=== PATIENT | female | born 2000 | race Caucasian/White ===

== ENCOUNTER 2024-08-09 14:09 | Inpatient (IN) ==
[2024-08-09 15:08] LABS: Appearance Urine Cloudy (Clear); Bacteria Urine Automated None Seen (None Seen); Bilirubin Urine Negative (Negative); Blood Urine 3+ (Negative); Cast Urine Automated 0-2 /lpf (0-2); Color Urine Yellow; Epithelial Cell Urine Auto 0-2 /hpf (0-2); Glucose Urine UA Negative (Negative); Ketones Urine Trace (Negative); Leukocyte Esterase Urine Negative (Negative); Nitrite Urine Negative (Negative); Protein Urine Trace (Negative); RBC Urine Automated >20 /hpf (0-2); Specific Gravity Urine 1.028 (1.000-1.030); Urobilinogen Urine Negative (Negative); WBC Urine Automated 0-5 /hpf (0-5); pH Urine 5.5 (4.5-7.5)
[2024-08-09 15:29] LABS: Basophils # (auto) 0.03 K/uL (0.00-0.20); Basophils % (auto) 0.4 %; Eosinophils # (auto) 0.09 K/uL (0.00-0.50); Eosinophils % (auto) 1.3 %; Hematocrit (blood only) 37.9 % (37.0-47.0); Hemoglobin 12.2 g/dl (12.0-16.0); Immature Granulocytes # (auto) 0.01 K/uL (0.01-0.20); Immature Granulocytes % (auto) 0.1 %; Lymphocytes # (auto) 1.69 K/uL (1.20-3.40); Lymphocytes % (auto) 24.6 %; Mean Corpuscular Hemoglobin 26.9 pg (25.0-34.0); Mean Corpuscular Hgb Conc 32.2 g/dL (32.0-36.0); Mean Corpuscular Volume 83.5 fL (80.0-100.0); Mean Platelet Volume 9.8 fL (9.4-12.4); Monocytes # (auto) 0.59 K/uL (0.11-0.59); Monocytes % (auto) 8.6 %; Neutrophils # (auto) 4.47 K/uL (1.40-6.50); Platelet Count 301 K/uL (130-400); RDW Coefficient of Variation 12.8 % (11.5-14.5); RDW Standard Deviation 38.9 fL (36.4-46.3); Red Blood Count 4.54 M/uL (4.20-5.40); White Blood Count 6.88 K/ul (4.8-10.8)
[2024-08-09 15:34] LABS: Albumin Globulin Ratio 1.5 (0.9-2); Albumin Level 4.4 gm/dl (3.4-5.0); BUN Creatinine Ratio 11.5 (10-20); Bilirubin,Total 0.2 mg/dl (0.2-1.0); Calcium 9.3 mg/dl (8.6-10.3); Creatinine Clr Calc Pharmacy 141.9 ml/min; Globulin 2.9 gm/dl (2.5-4.0); Potassium 3.8 mmol/L (3.5-5.1); Total Protein 7.3 gm/dl (6.0-8.3)
[2024-08-09 15:37] LABS: Acetaminophen < 3 ug/ml (10-30); Salicylate < 3.0 mg/dl (3.0-30)
[2024-08-09 15:40] LABS: Amphetamines+Metham, Urine Neg (Neg); Barbiturates, Urine Neg (Neg); Benzodiazepine, Urine Neg (Neg); Cocaine, Urine Neg (Neg); Fentanyl, Urine Neg (Neg); MDMA (Ecstacy), Urine Neg (Neg); Marijuana, Urine Neg (Neg); Methadone, Urine Neg (Neg); Opiate, Urine Neg (Neg); Phencyclidine, Urine Neg (Neg)
[2024-08-09 15:48] LABS: Thyroid Stimulating Hormone 1.882 uIu/ml (0.300-4.500)
--- NOTE | 2024-08-09 16:18 | Emergency Department Note ---
Impression & Plan Psychosis, Hallucinations ED Provider Note NAME: YAEL CASTELAN AGE: 23 SEX: F : 2000 ARRIVES VIA: Walk-In INFORMANT: [Patient][mother] ED PROVIDER(S): [Driss Gaxiola MD] CHIEF COMPLAINT: Mental health evaluation HISTORY OF PRESENT ILLNESS: The patient is a 23-year-old female who presents to the ER with hallucinations. She has been hearing voices. At one point, she felt there was a car following her. She would see the car but no one else would. The patient has had this issue ongoing for some time but it is worsening. It is now beginning to interfere with her schoolwork and her ability to function on an outpatient basis. Patient went to her doctor's office today, she was referred to the ER for a psychiatric evaluation and hospitalization. The patient is voluntary. The patient is not currently suicidal or homicidal. The patient is on her menstrual cycle currently, she states that when she is on her cycle, her symptoms worsen. As per the mother, the patient's father had bipolar disease and he did also hear voices. The patient is not currently on any psychiatric medications. PMHx/PSHx/Social Hx: See Below PHYSICAL EXAM: GENERAL: Patient is in no acute distress. HEENT: No acute trauma, normocephalic atraumatic, mucous membranes moist, no nasal congestion. NECK: No stridor, no adenopathy, no meningismus, trachea is midline. LUNGS: Clear to auscultation bilaterally, no wheeze, no rhonchi, breath sounds equal. HEART: Without murmurs gallops or rubs, regular rate and rhythm. ABDOMEN: Soft, nontender, no peritonitis. EXTREMITIES: No cyanosis, full range of motion of all the joints without pain or difficulty. NEUROLOGIC: Oriented x 3, no acute motor or sensory deficits, no focal weakness. SKIN: No jaundice, no diaphoresis. Psychiatric: Cooperative, voluntary, not suicidal or homicidal. Admits to hearing voices. DIFFERENTIAL DIAGNOSIS: Psychosis, schizophrenia, intracranial mass or bleed, electrolyte disturbance, among others. EMERGENCY DEPARTMENT PROCEDURES: MEDICAL DECISION MAKING: There is no leukocytosis or concerning anemia. There is a normal platelet count. No renal failure or significant electrolyte abnormality. No concerning liver enzyme elevation. Patient appears to be in a euthyroid state. testing is negative. Urinalysis shows some blood however, the patient is on her menstrual cycle. No evidence for UTI. Aspirin and Tylenol levels were undetectable. Alcohol level was basically undetectable. COVID test was negative. Urine tox was negative. Brain CT showed no acute bleed or mass effect. On exam, the patient was cooperative. She admitted to hearing voices. The patient was felt medically clear. She was seen by psychiatry case management. The patient was seen by our hospital psychiatric services, she has been accepted to their floor. She is being admitted voluntarily. I did sign the appropriate paperwork for her voluntary psychiatric admission. She has done well in the ED, she has been quite cooperative. Prior/Outside records/notes reviewed: None Imaging/x-ray results per my interpretation: Chronic Medical/Social conditions affecting care: College student. Care/Management discussed with: Psychiatry case management. Level of care consideration(s): After review of the information above and other included data: --I believe the patient requires escalation of care to admission for inpatient psychiatric care DISPOSITION: Admitted to our hospital's psychiatric floor, 3 S. Past Med/Surg History Problem List (Updated 08/09/24 @ 21:56 by Driss Gaxiola MD) Hallucinations (Acute) Psychosis (Acute) Medical History Seizure Social History Smoking Status: Never smoker Preferred Language: Korean Communication Ability: Effective Poultry Husbandman Required: No Beliefs That Will Affect Care: None Feels Safe at Home: Yes Gender Identity: Female Assistive Devices: None Allergies Allergies Allergy/AdvReac Type Severity Reaction Status Date / Time No Known Allergies Allergy Unverified 08/09/24 19:39 Results & Data (ED) Vital Signs Vital Signs - 24 hr 08/09/24 14:16 08/09/24 17:16 08/09/24 19:08 Temperature 36.5 C Temperature Source Oral Pulse Rate 74 74 Pulse Rate [Apical] 50 L Respiratory Rate 20 20 18 Respiratory Effort / Characteristics Non-Labored Spontaneous Respiratory Depth Normal Blood Pressure 148/93 H 135/74 Blood Pressure [Right Arm] 116/74 Blood Pressure Mean 111 Blood Pressure Mean [Right Arm] 88 Pulse Oximetry 99 97 98 Oxygen Delivery Method Room Air Room Air Room Air Sepsis Recent Fever Within 48 Hours No Sepsis New/Unexplained Change in Mental Status No Sepsis Action Taken by Nursing No Action Required Home Medications Current Medication List: was personally reviewed by me Laboratory Data Attestation: I reviewed the patient's lab results. 08/09/24 14:48 08/09/24 14:48 Lab Results 08/09/24 08/09/24 Range/Units 14:25 14:48 WBC 6.88 (4.8-10.8) K/ul RBC 4.54 (4.20-5.40) M/uL Hgb 12.2 (12.0-16.0) g/dl Hct 37.9 (37.0-47.0) % MCV 83.5 (80.0-100.0) fL MCH 26.9 (25.0-34.0) pg MCHC 32.2 (32.0-36.0) g/dL RDW Std Deviation 38.9 (36.4-46.3) fL RDW Coeff of Tara 12.8 (11.5-14.5) % Plt Count 301 (130-400) K/uL MPV 9.8 (9.4-12.4) fL Immature Gran % (Auto) 0.1 % Neut % (Auto) 65.0 % Lymph % (Auto) 24.6 % [place] % (Auto) 8.6 % Eos % (Auto) 1.3 % Baso % (Auto) 0.4 % Neut # (Auto) 4.47 (1.40-6.50) K/uL Lymph # (Auto) 1.69 (1.20-3.40) K/uL [place] # (Auto) 0.59 (0.11-0.59) K/uL Eos # (Auto) 0.09 (0.00-0.50) K/uL Baso # (Auto) 0.03 (0.00-0.20) K/uL Immature Gran # (Auto) 0.01 (0.01-0.20) K/uL Sodium 141 (136-145) mmol/L Potassium 3.8 (3.5-5.1) mmol/L Chloride 108 H (98-107) mmol/L Carbon Dioxide 28 (21-32) mmol/L Anion Gap 5 (3-11) BUN 7 (6-23) mg/dl Creatinine 0.61 (0.6-1.2) mg/dl Est Cr Clr Drug Dosing 141.9 ml/min eGFR 130.36 BUN/Creatinine Ratio 11.5 (10-20) Glucose 95 (70-99(Fasting)) mg/dl Calcium 9.3 (8.6-10.3) mg/dl Total Bilirubin 0.2 (0.2-1.0) mg/dl AST 12 L (13-39) U/L ALT 9 (7-52) U/L Alkaline Phosphatase 48 (34-104) U/L Total Protein 7.3 (6.0-8.3) gm/dl Albumin 4.4 (3.4-5.0) gm/dl Globulin 2.9 (2.5-4.0) gm/dl Albumin/Globulin Ratio 1.5 (0.9-2) TSH 1.882 (0.300-4.500) uIu/ml HCG, Qual Negative (Negative) Urine Color Yellow Urine Appearance Cloudy A (Clear) Urine pH 5.5 (4.5-7.5) Ur Specific [place] 1.028 (1.000-1.030) Urine Protein Trace H (Negative) Urine Glucose (UA) Negative (Negative) Urine Ketones Trace H (Negative) Urine Blood 3+ H (Negative) Urine Nitrite Negative (Negative) Urine Bilirubin Negative (Negative) Urine Urobilinogen Negative (Negative) Ur Leukocyte Esterase Negative (Negative) Urine WBC (Auto) 0-5 (0-5) /hpf Urine RBC (Auto) >20 H (0-2) /hpf U Hyaline Cast (Auto) 0-2 (0-2) /lpf U Epithel Cells (Auto) 0-2 (0-2) /hpf Urine Bacteria (Auto) None Seen (None Seen) Salicylates < 3.0 L (3.0-30) mg/dl Urine Opiates Screen Neg (Neg) Ur Methadone, Qual Neg (Neg) Urine Fentanyl Screen Neg (Neg) Acetaminophen < 3 L (10-30) ug/ml Urine Barbiturates Neg (Neg) Ur Phencyclidine (PCP) Neg (Neg) U Amphetamin/Meth Scrn Neg (Neg) MDMA (Ecstasy) Screen Neg (Neg) U Benzodiazepines Scrn Neg (Neg) Ur Cocaine Metabolite Neg (Neg) U Marijuana (THC) Screen Neg (Neg) Ethyl Alcohol mg/dL 10.7 H (<10.0) mg/dl SARS-CoV-2, RNA, NAAT NEGATIVE (NEGATIVE) Imaging Data Radiologist's Impression: Head CT 08/09/24 15:51 CT head/brain wo con CLINICAL HISTORY: 23 years-old Female with hears voices. Acutely altered mental status TECHNIQUE: Multiple axial CT images of the head were obtained without contrast. A dose lowering technique was utilized adhering to the principles of ALARA. CT DOSE: 703.85 mGy.cm COMPARISON: None. FINDINGS: No acute intracranial hemorrhage, midline shift, intracranial mass, hydrocephalus, territorial ischemia or abnormal extra-axial collection. The calvarium is intact. The paranasal sinuses, mastoid air cells, and middle ear cavities are clear. IMPRESSION: Normal exam. ACT 112: Negative or not required by law. The above report was generated using voice recognition software. It may contain grammatical, syntax or spelling errors. Electronically signed by: Abner Gomez M.D. 08/09/2024 4:21 PM Discharge Plan Visit Data Chief Complaint: Mental Health Evaluation Stated Complaint: HALLUCINATING, SCIZOPHRENIC, REF BY DOC ED Provider: Driss Gaxiola Discharge Problem: Psychosis, Hallucinations Patient Disposition: Admitted As Inpatient Condition: Good Discharge Instructions Interventions: ED Discharge Assessment Last Done: 08/09/24 19:08 Discharge Problem: Psychosis Qualifiers: Psychosis type: unspecified psychosis type Qualified Code(s): F29 - Unspecified psychosis not due to a substance or known physiological condition
--- NOTE | 2024-08-09 16:22 | CT Scan Report ---
CT head/brain wo con CLINICAL HISTORY: 23 years-old Female with hears voices. Acutely altered mental status TECHNIQUE: Multiple axial CT images of the head were obtained without contrast. A dose lowering tech nique was utilized adhering to the principles of ALARA. CT DOSE: 703.85 mGy.cm COMPARISON: None. FINDINGS: No acute intracranial hemorrhage, midline shift, intracranial mass, hydrocephalus, territorial ischem ia or abnormal extra-axial collection. The calvarium is intact. The paranasal sinuses, mastoid air cells, and middle ear cavities are clear . IMPRESSION: Normal exam. ACT 112: Negative or not required by law. The above report was generated using voice recognition software. It may contain grammatical, syntax o r spelling errors. Electronically signed by: Abner Gomez M.D. 08/09/2024 4:21 PM
[2024-08-09 16:57] LABS: Pregnancy Test, Serum Negative (Negative)
[2024-08-09] MEDS ORDERED: MAGNESIUM HYDROXIDE SUSP 30 ML UDC PO PRN (19:05)
[2024-08-09] MEDS ORDERED: ACETAMINOPHEN 325 MG TAB PO PRN (19:05)
[2024-08-09] MEDS ORDERED: SODIUM CHLORIDE 0.65% NA SOLN 45 ML (OCEAN) PRN (19:05)
[2024-08-09] MEDS ORDERED: BISMUTH SUBSALICYLATE 262 MG CHEW PO PRN (19:05)
[2024-08-09] MEDS ORDERED: hydrOXYzine HCl 25 MG TAB PO PRN ×2 (19:05)
[2024-08-09] MEDS ORDERED: ALUMINUM/MAGNESIUM SUSP 30 ML UDC PO PRN (19:05)
[2024-08-09] MEDS ORDERED: risperiDONE 0.25 MG TAB PO PRN (21:27)
--- NOTE | 2024-08-10 08:48 | History & Physical ---
Date of Service August 10, 2024 Impression / Recommendations Impression YAEL CASTELAN is a 23-year-old woman and [employer] senior who currently lives with her mother and brothers in [place], has no formal psychiatric history, and was admitted on 08/09/24 19:33 on a 201 voluntary commitment for paranoia and psychosis interfering with her ability to function. She has no outpatient services and is becoming increasingly distressed due to intensifying auditory hallucinations, complex delusions and paranoia impacting her sleep and ability to function at school. Diagnostically consistent with unspecified psychosis with differential including delusion disorder vs schizophrenia vs bipolar affective disorder current episode of zeeshan (rapid speech but no other symptoms of zeeshan observed so far) vs secondary to seizure episodes (unclear if past episodes were psychogenic, unclear if some of her current symptoms may represent ongoing focal aware seizures at times but unlikely to cause consistent auditory hallucinations and complex delusions). Discussed medication treatment options in detail. Discussed risks, benefits and alternatives. Patient would like to start and consented to Abilify for unspecified psychosis. Reviewed side effects including but not limited to: movement (TD, NMS), cardiac (QTc prolongation), and metabolic (stroke, insulin resistance) and necessity for fasting lipid and glucose labwork and AIMS done with score of 0. MNPR due to psychosis, paranoia Overall I spent a total of 80 minutes for this admission including review of chart records, review of labwork, direct evaluation of the patient, counseling the patient, ordering medication, risk assessment, discussion with the psychiatric liason RN and documentation in the electronic health record. (1) Psychosis: Psychosis type: unspecified psychosis type Qualified Code(s): F29 - Unspecified psychosis not due to a substance or known physiological condition (2) Hallucinations: Plan 08/10/2024: The patient was [facility] on q15 min checks (behavioral with suicide precautions) for safety. The patient will participate in group, recreational, and milieu therapies and will be offered additional individual and family sessions as clinically appropriate. -Start abilify 5mg qd with additional 2.5mg po BID prn for psychosis -HbA1c and fasting lipid panel tomorrow AM -Seizure precautions Inventory Assets Strengths: supportive relationships, willing to get treatment Needs: safety and stabilization, medication adjustment, additional coping skills, increased outpatient services Suicide Risk Level Suicide Risk Level: Moderate (q15 min suicide checks) (denies SI but having auditory hallucinations which are distressing and can be command in nature at times (though never to harm herself), feels safe on the unit, feels able to ask for support) Risk Factors Assessment Male: No : No Do You Have Access To A Gun?: No Mental Health Diagnoses: Yes Substance Use Disorders: No Previous Attempt: No Family History of Suicide: No Previous Psychiatric Hospitalization: No Hopelessness: No Protective Factors Assessment Employed: No Stable Relationships: Yes Supportive Family: Yes Psychiatric History Identifying Data YAEL CASTELAN is a 23-year-old woman and [employer] senior who currently lives with her mother and brothers in [place], has no formal psychiatric history, and was admitted on 08/09/24 19:33 on a 201 voluntary commitment for paranoia and psychosis interfering with her ability to function. Chief Complaint "I don't know how much I want to reveal". Thinks she is telepathic, sees things in her dreams and then sees them when awake, hears voices that tell her to wear certain clothes, hears a chess player. One of the voices tells her they are going to sexually abuse her mother. Paranoia about her phone being hacked, will cover the camera bc she thinks she is being watched. Reports pattern of symptoms worsening during her menses. Hyperverbal initially, slept well overnight, typically has hypersomnia. History of Present Illness She presents for psychiatric admission for worsening psychosis interfering with her ability to function as she has been hearing negative voices which are impacting her sleep and ability to function in her classes. She describes a 4 year history of disturbing symptoms that worsen around her menses. She reports a strong correlation between her symptoms and technology, with the onset of her symptoms beginning with a perceived connection to a male individual on campus. She describes feeling paranoid due to the individual's avoidance of direct communication and subsequent interactions on a [employer] website. She has been experiencing auditory hallucinations, hearing the individual's voice in her head, which has led to sleep disturbances and obsessive behavior with chess as a coping mechanism. She has experienced physical sensations throughout her body and has a history of belching related to this sense of "wisps and pressure" but also reports this is associated with seizures. She reports sensations throughout her body, including what she calls "wisps" on her body, face, inside her nose, and behind her ears. She also describes feeling pressures on her heart and in her pelvic area. She reports stable sleep in recent weeks of at least 8 hours per night. Expanding on her symptoms she describes a variety of experiencing including: "Essentially it's evolved to a connection with technology". She has the sense of "wisps" on her body, behind my ears, my neck, my nose. She notes she also feels "pressures that are not my own, my heart would act because of some pressure". She describes "ictal belching" related to this pressure and "I think connected to my mosque". She describes increasing paranoia especially toward an individual who she's never spoken to but whom she senses he has wanted to establish some type of connection. She notes that whenever she tried to approach him "he had a bizarre aura". She notes that "he knew I liked him" but "he would never talk, he just wanted to be in my presence". She tried to come to the conclusion that he didn't like her but "he was always staring at me and I'd always see him around campus". She feels this started her paranoia and that it's persisted since then. She enjoys playing [employer] but after an experience on [employer] where she played against someone with a username that matched the man who she sees around campus. She messaged him through the [employer] site to confirm it was him and asked this person to confirm the name of her best friend but this individual then said they didn't understand [place] and so she blocked this person online. She notes that a lot of her paranoia correlates to her dreams. One morning she saw "a telegram in the jerzy" of this man talking to her in the dream. She then realized that he could see her through her computer screen. She noticed her [employer] website would "glitch or shut down" and she suspects this may have been him hacking her computer. She then began hearing his voice in her head and "my computer slowed down like it was correlated" or the [employer] pieces would slow down. Her sleep has been difficult "because he tells me why he acts the way he does and it's very negative including all the reasons he can't talk to me like you're poor and the n-word" she notes it would also tell her to stop playing chess. The voice has been very negative and "they aren't my thoughts". She ended up playing a lot of chess to relax but then "I would feel like he was stalking me because he would try to stop me from playing because the game would freeze". The voice would say "I can see you" and "I can hear you" so she felt she needed to cover her camera. She now has the sense he knew about her before college and "knew me despite us not having met" and thinks this is why she was dreaming about him before they even met. She's never pointed him out when she's with other individuals. She has the sense "he knows what I'm thinking and feeling and can hear through the regalado". The voice "threatens me" will say negative things to her swear at her. "Part of it is the telepathy". She notes the voice is often "crying". She thinks he is upset today that she is away from her electronics in the inpatient setting so he can't monitor her. She feels like last week she saw him on campus driving around in his black Honda. She also reports a history of epilepsy, with her last seizure occurring during college. She experiences headaches, belching, and occasional trembling fits. She has previously been on Trileptal and Lamictal for seizure management but weaned herself off the medications in 10th grade due to their impact on her school performance. She denies any thoughts of suicide or wanting to hurt others but acknowledges that the auditory hallucinations sometimes instruct her to do things but she never does this. She describes periods of "zeeshan" during which the hallucinations become more negative and persistent, affecting her sleep but denies any other symptoms of zeeshan during this time. She is currently studying Romanian and is on track to graduate in the spring. She is not currently prescribed any psychiatric medications. Past Psychiatric History Previous Psych History: Apparently having concerns for the last four years of concerns about a young man stalking her. Current Psychiatric Diagnosis: No formal diagnosis Outpatient Services: none Previous Psych Admissions: none Do You Have Access To A Gun?: No History of Previous Suicide Attempt: No Past Medication Trials: none, was on lamictal for seizures but didn't like that it impacted her cognition/academic performance Past Head Trauma/Neuro History History of Concussion/Seizure: Yes Grew up with epilepsy, last seizure was in 5th grade. More recently will have "ictal belching" and may have "trembling fits". History of being on Trileptal and lamictal. Allergies Allergy/AdvReac Type Severity Reaction Status Date / Time Penicillins Allergy Unknown Verified 08/10/24 12:54 Family History Family History of: Depression (maternal grandfather ), Psychosis/ThoughtDisorder (father diagnosed with bipolar "but he reported hearing voices") and Bipolar (sister) Family Mental Health History Comment: Father, aunts Alcohol History Hx of Alcohol Use Over the Past 12 Months: No AUDIT Total Score: 0 Smoking Use Have You Smoked or Used Tobacco Products in the Last 30 Days: No Smoking Status: Never smoker Substance History Hx of Prescription Med Misuse Over the Past 12 Months: No Hx of Over the Counter Med Misuse Over the Past 12 Months: No Hx of Inhalent Misuse Over the Past 12 Months: No Hx of Organic Substance Use Over the Past 12 Months: No Hx of Illegal Substances/Street Drug Use Over Past 12 Months: No Problems as a Result of Past Substance Use: None Identified Personal History Living Arrangements: Home Childhood: Struggled with housing insecurity. Has a good relationship with her mother. Has two younger brothers. Since the family was homeless her mom found place near [facility] so she commutes from home currently. Highest Grade Completed: Some College Employment Status: Student ([employer] studying Romanian) Marital Status: Single Beliefs That Will Affect Care: None Current Legal Problems: No Hx Legal Problems: No Hx Traumatic Life Events: Yes Patient History Medical History Seizure Social History Smoking Status: Never smoker Preferred Language: Venezuelan Communication Ability: Effective Tire [employer]older Required: No Beliefs That Will Affect Care: None Feels Safe at Home: Yes Gender Identity: Female Assistive Devices: None Review of Systems Review of Systems: All systems reviewed & are unremarkable except as noted in HPI & below Physical Exam Psychiatric: Orientation: alert and oriented x 3 Apperance: appropriately dressed and appropriately groomed Eye Contact: good eye contact Motor Behavior: no abnormal motor movements Speech: + abnormal rate/rhythm/volume of speech (hyperverbal, rapid but interruptable) Affect: + anxious affect Mood: + anxious mood Thought Process: + tangential thought process Thought Content: + preoccupation, + obsessions, + paranoid, + delusions, + ideas of reference, + thought insertion and + persecution Suicidal Thoughts: denies suicidal plan and denies suicidal intent; + reports suicidal thoughts (sometimes passive thoughts) Homicidal Thoughts: denies homicidal thoughts Hallucinations: + auditory hallucinations and + visual hallucinations Cognition: recent memory grossly intact, remote memory grossly intact, attention grossly intact and language grossly intact Estimated Intelligence: consistent with education level Insight: + limited insight Judgment: + fair judgement Vital Signs (Past 24 Hours): Last Vital Signs Temp 36.9 C 08/10/24 06:00 Pulse 55 L 08/10/24 06:20 Resp 18 08/10/24 06:00 BP 106/67 08/10/24 06:20 Pulse Ox 99 08/10/24 06:00 O2 Del Method Room Air 08/10/24 06:00 Exam Statement: A physical exam was performed in the ED by Dr. Gaxiola for the purposes of medical clearance. I accept that physical as correct and adequate for the purposes of the inpatient physical exam. Results & Data ([facility]) Laboratory Results Laboratory Results - last 24 hr 08/09/24 08/09/24 14:25 14:48 WBC 6.88 RBC 4.54 Hgb 12.2 Hct 37.9 MCV 83.5 MCH 26.9 MCHC 32.2 RDW Std Deviation 38.9 RDW Coeff of Tara 12.8 Plt Count 301 MPV 9.8 Immature Gran % (Auto) 0.1 Neut % (Auto) 65.0 Lymph % (Auto) 24.6 [place] % (Auto) 8.6 Eos % (Auto) 1.3 Baso % (Auto) 0.4 Neut # (Auto) 4.47 Lymph # (Auto) 1.69 [place] # (Auto) 0.59 Eos # (Auto) 0.09 Baso # (Auto) 0.03 Immature Gran # (Auto) 0.01 Sodium 141 Potassium 3.8 Chloride 108 H Carbon Dioxide 28 Anion Gap 5 BUN 7 Creatinine 0.61 Est Cr Clr Drug Dosing 141.9 eGFR 130.36 BUN/Creatinine Ratio 11.5 Glucose 95 Calcium 9.3 Total Bilirubin 0.2 AST 12 L ALT 9 Alkaline Phosphatase 48 Total Protein 7.3 Albumin 4.4 Globulin 2.9 Albumin/Globulin Ratio 1.5 TSH 1.882 HCG, Qual Negative Urine Color Yellow Urine Appearance Cloudy A Urine pH 5.5 Ur Specific [place] 1.028 Urine Protein Trace H Urine Glucose (UA) Negative Urine Ketones Trace H Urine Blood 3+ H Urine Nitrite Negative Urine Bilirubin Negative Urine Urobilinogen Negative Ur Leukocyte Esterase Negative Urine WBC (Auto) 0-5 Urine RBC (Auto) >20 H U Hyaline Cast (Auto) 0-2 U Epithel Cells (Auto) 0-2 Urine Bacteria (Auto) None Seen Salicylates < 3.0 L Urine Opiates Screen Neg Ur Methadone, Qual Neg Urine Fentanyl Screen Neg Acetaminophen < 3 L Urine Barbiturates Neg Ur Phencyclidine (PCP) Neg U Amphetamin/Meth Scrn Neg MDMA (Ecstasy) Screen Neg U Benzodiazepines Scrn Neg Ur Cocaine Metabolite Neg U Marijuana (THC) Screen Neg Ethyl Alcohol mg/dL 10.7 H SARS-CoV-2, RNA, NAAT NEGATIVE Current Inpatient Medications Current Inpatient Medications: Current Inpatient Medications Acetaminophen (Acetaminophen 325 Mg Tab) 650 mg PO Q4H PRN PRN Reason: Headache or Minor Fever Stop: 09/08/24 19:04 Al Hydrox/Mg Hydrox/Simethicone (Aluminum/Magnesium Susp 30 Ml Udc) 30 ml PO Q4H PRN PRN Reason: GI Upset Stop: 09/08/24 19:04 Bismuth Subsalicylate (Bismuth Subsalicylate 262 Mg Chew) 2 tab PO Q30M PRN PRN Reason: Loose Stool/Diarrhea Stop: 09/08/24 19:04 Hydroxyzine HCl (Hydroxyzine Hcl 25 Mg Tab) 50 mg PO HSZ PRN PRN Reason: Insomnia Stop: 09/08/24 19:04 Hydroxyzine HCl (Hydroxyzine Hcl 25 Mg Tab) 25 mg PO Q4H PRN PRN Reason: Anxiety Stop: 09/08/24 19:04 Magnesium Hydroxide (Magnesium Hydroxide Susp 30 Ml Udc) 30 ml PO DAILY PRN PRN Reason: Constipation Stop: 09/08/24 19:04 Risperidone (Risperidone 0.25 Mg Tab) 0.5 mg PO BID PRN PRN Reason: psychosis/agitation Stop: 09/08/24 21:26 Sodium Chloride (Sodium Chloride 0.65% Na Soln 45 Ml ([place])) 1 - 2 sprays NA PRN PRN PRN Reason: Nasal Dryness/Congestion Stop: 09/08/24 19:04
--- OUTSIDE RECORDS SUMMARY | 2024-08-10 09:12 | External Medical Summary | Summary of Care ---
Author Name Unknown Organization [facility] Address [address] [place] [address] Phone [phone] Care Team Providers Care Hospitalist Program Director Name Role Phone Sarahi Casas MD Primary Care Provider + Reason for Referral * Evaluate & Treat - Unlimited Visits (Within 3 days (urgent)) - Pending Review Specialty Diagnoses / Procedures Referred By Alice ross Referred To Contact Psychology Diagnoses Sarahi Walker MD [address] [place] [address] Referral ID Status Reason Start Date Expiration Date Visits Requested Visits Authorized [id number] Pending Review Specialty Services Required 08/09/2024 1 1 Question Answer Referral Priority Within 3 days (urgent) Where should this appointment be scheduled? [facility] Reason for Referral: Other (Comment) Specific Condition? Other (Comment) Comments Please eval, have symptoms off and on of hallucination, negative thoughts for last 3 yrs, getting worse now. Refusing to go to ER. Doesn't prefer telemedicine.Thanks. Thanks * Evaluate & Treat - Unlimited Visits (Within 3 days (urgent)) - Pending Review Specialty Diagnoses / Procedures Referred By Alice ross Referred To Contact Psychiatry Diagnoses Sarahi Walker MD [address] [place] [address] Referral ID Status Reason Start Date Expiration Date Visits Requested Visits Authorized [id number] Pending Review Specialty Services Required 08/09/[phone] Question Answer Referral Priority Within 3 days (urgent) Where should this appointment be scheduled? [facility] Is this referral for medication management? Yes Reason for Referral Schizophrenia Comments Please eval, have symptoms off and on of hallucination, negative thoughts for last 3 yrs, getting worse now. Thanks. Reason for Visit * Reason Comments Referral Discuss referral for possible schizophrenia; patient accompanied by mother Encounter Details Date Type Department Care Team (Late st Contact Info) Description 08/09/2024 9:40 AM EDT Office Visit General Internal Medicine [facility] [place] [address] [facility] [place] [address] Sarahi Casas MD [address] [facility] [place] [address] Hallucination*; Family history of endocrine disorder; Screening for deficiency anemia Allergies Active Allergy Reactions Criticality Noted Date Comments Penicillins Rash 03/29/2023 documented as of this encounter (statuses as of 08/09/2024) Medications No known medicationsdocumented as of this encounter (statuses as of 08/09/2024) Active Problems Problem Noted Date Diagnosed Date Hypercholesterolemia 04/12/2023 documented as of this encounter (statuses as of 08/09/2024) Immunizations Name Administration Dates Next Due Seasonal Influenza, Trivalent, (IIV3), PF, (Fluz one) 07/26/2024 documented as of this encounter Social History Tobacco Use Types Packs/Day Years Used Date Smoking Tobacco: Never Smokeless Tobacco: Never Tobacco Cessation:Counseling Given: Not Answered Alcohol Use Standard Drinks/Week Comments Never 0 (1 standard drink = 0.6 oz pur e alcohol) PHQ-2 Answer Date Recorded PHQ Adult Total Score 19 06/03/2023 Utilities Answer Date Recorded Do you have trouble paying y our heating, water, or electric bill? (Adult - for ages 18 years and over) Not on file 04/24/2024 Is your family able to pay t he heat, water, or electric bill? (Household - for ages 0-17 years) Not on file 04/24/2024 Does your family have access to good internet? (Household - for ages 0-17 years) Not on file 04/24/2024 Social Connections Answer Date Recorded How often do you feel lonely or isolated from those around you? (Adult - for ages 18 years and over) Not on file 04/24/2024 Sex and Gender Information Value Date Recorded Sex Assigned at Not on file Gender Identity Not on file Sexual Orientation Not on file Job Start Date Occupation Industry Not on file Not on file Not on file documented as of this encounter Last Filed Vital Signs Vital Sign Reading Time Taken Comments Blood Pressure 108/60 08/09/2024 9:44 AM EDT Pulse 56 08/09/2024 9:44 AM EDT Temperature 36.9 C (98.4 F) 08/09/2024 9:44 AM ED T Respiratory Rate 24 08/09/2024 9:44 AM EDT Oxygen Saturation - - Inhaled Oxygen Concentration - - Weight 69.1 kg (152 lb 6.4 oz) 08/09/2024 9:44 A M EDT Height - - Body Mass Index 23.17 07/27/2024 2:53 PM EDT documented in this encounter Progress Notes * Sarahi Casas MD - 08/09/2024 9:55 AM EDT Images from the original note were not included. History of Present Illness Lis Jean is a 23 year old female that presents for Referral (Discuss referral for possible schizophrenia; patient accompanied by mother) Hx of epilepsy when she was 8 yr old, started meds around that time. Pt has tried Trileptal and fewother and used to see neurologist, stopped meds on her own around when she was 19 as had difficultyconcentrating. Lately having auditory and visual hallucinations about a boy or student at [employer] and states she was attracted to him but he never responded same way. Pt gets dreams for him, his parents and states hears his voices, his parents also come in her dream. Gives anxiety. No suicidal or homicidal ideation. Never seen any counsellor or therapist at college campus. Pt is accompained by her mother. Pt never had personal communication with this boy. She also feels while playing online chess she felt he was stalking her. Last year she tried getting help through Medicaid [facility] and was asked to go to ER. [place] and was advised to get admitted which patient and mother didn't prefer. We discussed seeing psychiatry, psychologist sooner than later and if agreeable ER eval any day. They do not prefer Er as a first option. She still gets thoughts of him stalking online and other times. Patient and mother are not sure what is real and not real. She also gets some negative thoughts and pt herself says she gets paranoid symptoms but no suicidalor homicidal ideation. Pt states she tried going to boy's home twice but once met his grandmother but never met this boy or parents. Pt states she tried contacting the boy in person and online but never got a response. Physical Exam Vitals: 08/09/24 0944 Temp: 36.9 C (98.4 F) Pulse: 56 Resp: 24 BP: 108/60 BP Readings from Last 3 Encounters: 08/09/24 108/60 07/27/24 106/77 12/19/23 117/71 Wt Readings from Last 3 Encounters: 08/09/24 69.1 kg (152 lb 6.4 oz) 07/27/24 67.7 kg (149 lb 3.2 oz) 12/19/23 67.4 kg (148 lb 8 oz) BMI Readings from Last 3 Encounters: 08/09/24 23.17 kg/m 07/27/24 22.69 kg/m 04/12/23 24.40 kg/m Ht Readings from Last 3 Encounters: 07/27/24 1.727 m (5' 8") 04/12/23 1.702 m (5' 7") 03/29/23 1.702 m (5' 7") I have reviewed the following results: TSH and CBC Assessment and Plan Hallucination (Primary) - TSH WITH FREE T4 IF INDICATED; Future; Expected date: 08/09/2024 - HEPATIC FUNCTION PANEL; Future; Expected date: 08/09/2024 - CBC WITH WBC DIFFERENTIAL; Future; Expected date: 08/09/2024 - ADULT/PEDS PSYCHIATRY REFERRAL OP - ADULT/PEDS PSYCHOLOGY REFERRAL OP ER for any emergencies. Strongly advised to go today from here but refusing. Family history of endocrine disorder - TSH WITH FREE T4 IF INDICATED; Future; Expected date: 08/09/2024 - HEPATIC FUNCTION PANEL; Future; Expected date: 08/09/2024 Screening for deficiency anemia - CBC WITH WBC DIFFERENTIAL; Future; Expected date: 08/09/2024 Wrap-Up Time: I spent a total of 40-54 minutes (exact time 40 mins) on the date of service in preparation, delivery, and documentation of the care provided to Lis Jean excluding any time spent in the performance of separately billed services. documented in this encounter Plan of Treatment Upcoming Encounters Date Type Department Care Team (Late st Contact Info) Description 10/16/2024 9:30 AM EST Telemedicine Psychology José Miguel Garza [address] [place] [address] Jessie Cesar LCSW [address] [place] [address] Scheduled Orders Name Type Priority Associated Diagnoses Orde r Schedule TSH WITH FREE T4 IF INDICATED Lab Routine Hallucination Family history of endocrine disorder Expected: 08/09/2024 (Approximate), Expires: 08/09/2025 HEPATIC FUNCTION PANEL Lab Routine Hallucination Family history of endocrine disorder Expected: 08/09/2024 (Approximate), Expires: 08/09/2025 CBC WITH WBC DIFFERENTIAL Lab Routine Hallucination Screening for deficiency anemia Expected: 08/09/2024 (Approximate), Expires: 08/09/2025 TOXICOLOGY, URINESCREEN W/ CONFIRMATION Lab Routine Hallucination Expected: 08/09/2024, Expires: 08/09/2025 Scheduled Referrals Name Type Priority Associated Diagnoses Orde r Schedule ADULT/PEDS PSYCHIATRY REFERRAL OP Referral Within 3 days (urgent) Hallucination Ordered: 08/09/2024 ADULT/PEDS PSYCHOLOGY REFERRAL OP Referral Within 3 days (urgent) Hallucination Ordered: 08/09/2024 Health Maintenance Due Date Last Done Comments Yearly Wellness Visit 2006 DTap/Tdap Vaccines (6 - Tdap) 2013 09/25/2007, 02/17/2005, 12/17/2003, Additional history exists Gonorrhea / Chlamydia Screen 2017 HIV Screening 2017 HPV (Gardasil) Vaccine (1 - 3-dose series) 2017 Hepatitis C Screening 2020 Pap Smear 2023 Depression Monitoring 06/03/2024 06/03/2023 COVID-19 Vaccine ( season) 2024 05/20/2022, 06/25/2021, 03/16/2021, Additional history exists Hepatitis B Vaccine Completed 02/17/2005, 02/19/2004, 12/17/2003 Influenza Vaccine (FLU shot) Completed 07/26/2024, 11/09/2012 MENINGOCOCCAL (MENACTRA/MENVEO) Aged Out No longer eligible based on patient's age to complete this topic Pneumococcal Vaccine: Pediatrics (0 to 5 Years) and At-Risk Patients (6 to 64 Years) Aged Out No longer eligible based on patient's age to complete this topic documented as of this encounter Medical Devices Not on filedocumented as of this encounter Visit Diagnoses Diagnosis Hallucination- Primary Hallucinations Family history of endocrine disorder Family history of other endocrine and metabolic diseases Screening for deficiency anemia Screening for other and unspecified deficiency anemia documented in this encounter Care Teams Hospitalist Program Director Relationship Specialty Start Date End Date Sarahi Casas MD [address] [place] [address], [place] [address] PCP - General Internal Medicine 04/14/23 documented as of this encounter
--- OUTSIDE RECORDS SUMMARY | 2024-08-10 09:12 | External Medical Summary ---
Author Name Unknown Address Unknown Organization [facility] [address] [place] [address] Laboratory Report Ordering Provider Test Date Status ISAEL MOONEY 08/09/2024 11:04:16 Final Observation Date Value Abnormality Reference (Units ) Status SYNC LEUKOCYTES IN BLOOD BY AUTOMATED COUNT 08/09/2024 11:04:16 4.76 4.00-10.80 (K/uL) Final Segs 08/09/2024 11:04:16 56.3 40.0-75.0 (%) Final Lymphs % 08/09/2024 11:04:16 33.2 18.0-42.0 (%) Final Monos 08/09/2024 11:04:16 8.6 1.0-11.0 (%) Final Eosinophils 08/09/2024 11:04:16 1.5 0.0-6.0 (%) Final Basos 08/09/2024 11:04:16 0.4 0.0-2.0 (%) Final Absolute Segs 08/09/2024 11:04:16 2.68 1.80-7.70 (K/uL) Final Lymphs, absolute 08/09/2024 11:04:16 1.58 1.00-4.80 (K/ul) Final Monos, Abs 08/09/2024 11:04:16 0.41 0.00-1.10 (K/uL) Final Eos, Abs 08/09/2024 11:04:16 0.07 0.00-0.70 (K/uL) Final Basos, Abs 08/09/2024 11:04:16 0.02 0.00-0.20 (K/uL) Final Performing Location [facility] [address]
--- OUTSIDE RECORDS SUMMARY | 2024-08-10 09:12 | External Medical Summary | Summary of Care ---
Author Name Unknown Organization [facility] Address [address] [place] [address] Phone [phone] Care Team Providers Care Shovel Loader Operator Name Role Phone Sarahi Casas MD Primary Care Provider + Reason for Visit * Reason Comments Outpatient Testing Encounter Details Date Type Department Care Team (Late st Contact Info) Description 08/09/2024 11:00 AM EDT Laboratory Laboratory [facility] [address] [place] [id number] [place], [address] [place] [address] Hallucination; Family history of endocrine disorder; Screening for [...] Date Smoking Tobacco: Never Smokeless Tobacco: Never Alcohol Use Standard Drinks/Week Comments Never 0 [...] on file documented as of this encounter Plan of Treatment Upcoming Encounters Date Type Department Care Team (Late Contact Info) Description 10/16/2024 9:30 AM EST Telemedicine Psychology José Miguel Garza [address] [place] [address] Jessie Cesar LCSW [address] [place] [address] Pending Results Name Type Priority Associated Diagnoses Date /Time TSH WITH FREE T4 IF INDICATED Lab Routine Hallucination Family history of endocrine disorder 08/09/2024 11:04 AM EDT HEPATIC FUNCTION PANEL Lab Routine Hallucination Family history of endocrine disorder 08/09/2024 11:04 AM EDT CBC WITH WBC DIFFERENTIAL Lab Routine Hallucination Screening for deficiency anemia 08/09/2024 11:04 AM EDT TOXICOLOGY, URINESCREEN W/ CONFIRMATION Lab Routine Hallucination 08/09/2024 11:04 AM EDT CBC Lab Routine Hallucination Screening for deficiency anemia 08/09/2024 11:04 AM EDT DIFFERENTIAL, AUTOMATED Lab Routine Hallucination Screening for deficiency anemia 08/09/2024 11:04 AM EDT Health Maintenance Due Date Last Done Comments [...] as of this encounter Visit Diagnoses Diagnosis Hallucination Hallucinations Family history of endocrine disorder Family history of other endocrine and metabolic diseases Screening for deficiency anemia Screening for other and unspecified deficiency anemia documented in this encounter Care Teams Shovel Loader Operator Relationship Specialty Start Date End Date Sarahi Casas MD [address] [place] [address] PCP - General Internal Medicine 04/14/23 documented as of this encounter
--- OUTSIDE RECORDS SUMMARY | 2024-08-10 09:12 | External Medical Summary ---
Author Name Unknown Address Unknown Organization [facility] [place] [address] Laboratory Report Ordering Provider Test Date Status ISAEL MOONEY 08/09/2024 11:04:16 Final Observation Date Value Abnormality Reference (Units ) Status WBC, Total 08/09/2024 11:04:16 4.76 4.00-10.8 0 (K/uL) Final RBC 08/09/2024 11:04:16 4.54 3.85-5.15 (M/uL) Final Hemoglobin 08/09/2024 11:04:16 12.6 12.0-15.3 (g/dL) Final HCT 08/09/2024 11:04:16 38.6 36.0-45.2 (%) Final MCV 08/09/2024 11:04:16 85.0 81.5-97.5 (fL) Final MCH 08/09/2024 11:04:16 27.8 27.0-34.0 (pg) Final MCHC 08/09/2024 11:04:16 32.6 32.0-36.0 (g/dL) Final RDW 08/09/2024 11:04:16 13.1 11.5-15.5 (%) Final Platelets 08/09/2024 11:04:16 295 140-400 (K /uL) Final MPV 08/09/2024 11:04:16 9.7 6.6-11.1 ( fL) Final Performing Location [facility] [place] [place] [address]
--- OUTSIDE RECORDS SUMMARY | 2024-08-10 09:13 | External Medical Summary | Summary of Care ---
Author Name Unknown Organization [facility] Address [address] [place] [address] Phone [phone] Care Team Providers Care Male Impersonator Name Role Phone Sarahi Casas MD Primary Care Provider + Reason for Visit * Reason Comments Return Visit Membranous nephropat hy Encounter Details Date Type Department Care Team (Late st Contact Info) Description 07/27/2024 3:00 PM EDT Office Visit Nephrology, [address] [address] Soniya Wilson MD [address] [place] [address] Dysuria*; Chronic membranous glomerulonephritis; Benign essential microscopic hematuria Allergies Active Allergy Reactions Criticality Noted Date Comments Penicillins Rash 03/29/2023 documented as of this encounter (statuses as of 07/27/2024) Medications No known medicationsdocumented as of this encounter (statuses as of 07/27/2024) Active Problems Problem Noted Date Diagnosed Date Hypercholesterolemia 04/12/2023 documented as of this encounter (statuses as of 07/27/2024) Immunizations Name Administration Dates Next Due Seasonal [...] Sign Reading Time Taken Comments Blood Pressure 106/77 07/27/2024 2:53 PM EDT Pulse 69 07/27/2024 2:53 PM EDT Temperature 37.6 C (99.7 F) 07/27/2024 2:53 PM ED T Respiratory Rate 16 07/27/2024 2:53 PM EDT Oxygen Saturation 97% 07/27/2024 2:53 PM EDT Inhaled Oxygen Concentration - - Weight 67.7 kg (149 lb 3.2 oz) 07/27/2024 2:53 P M EDT Height 172.7 cm (5' 8") 07/27/2024 2:53 PM EDT Body Mass Index 22.69 07/27/2024 2:53 PM EDT documented in this encounter Progress Notes * Soniya Wilson MD - 07/27/2024 2:51 PM EDT REASON FOR VISIT: CKD HPI: Lis Jean is a 23 year old female seen in follow-up for membranous nephropathy. 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 She exercises a lot. She is a [place] major in college. She had a good trip to [facility]. Last visit was Nov 2023. She has urinary frequency. She also has headaches. Patient reports extremestress lately. Blood pressure is controlled. Recent labs and urine test reviewed and discussed Past Medical History: Diagnosis Date Epilepsy (HCC) Hypercholesterolemia 04/12/2023 Kidney disease Review of Systems: General ROS: negative for - chills or fever Psychological ROS: negative for - mood swings ENT ROS: negative for - nasal congestion or nasal discharge Endocrine ROS: negative Respiratory ROS: no cough, shortness of breath, or wheezing Cardiovascular ROS: no chest pain or dyspnea on exertion Gastrointestinal ROS: no abdominal pain, change in bowel habits, or black or bloody stools Genito-Urinary ROS: no dysuria, trouble voiding, or hematuria Musculoskeletal ROS: negative for - muscle pain Neurological ROS: no TIA or stroke symptoms Dermatological ROS: negative for rash Family History Problem Relation Name Age of Onset No Known Problems Mother Bipolar Disorder Father Mental Disorder Sister Mental Disorder Grandfather (Maternal) Mental Disorder Grandfather (Paternal) Addiction problem Grandfather (Paternal) Depression Aunt (Maternal) Depression Aunt (Paternal) Social History Socioeconomic History Marital status: Single Spouse name: Not on file Number of children: Not on file Years of education: Not on file Highest education level: Not on file Occupational History Occupation: student Tobacco Use Smoking status: Never Smokeless tobacco: Never Vaping Use Vaping status: Never Used Substance and Sexual Activity Alcohol use: Never Drug use: Never Sexual activity: Never Other Topics Concern Not on file Social History Narrative Not on file Social Determinants of Health Financial Resource Strain: Not on file Food Insecurity: Not on file Transportation Needs: Not on file Social Connections: Unknown (04/24/2024) Social Connections How often do you feel lonely or isolated from those around you? (Adult - for ages 18 years and over): Not on file Housing Stability: Not on file No current outpatient medications on file. No current facility-administered medications for this visit. Filed Vitals: 07/27/24 1453 BP: 106/77 Pulse: 69 Resp: 16 Temp: 37.6 C (99.7 F) TempSrc: Tympanic SpO2: 97% Weight: 67.7 kg (149 lb 3.2 oz) Height: 1.727 m (5' 8") PHYSICAL EXAM: GENERAL: Alert, in no acute distress. EYES: PERRL, conjunctivae anicteric. ENT: Mucous membranes moist, oropharynx clear. NECK: Supple, no JVD. LYMPH: No cervical or supraclavicular lymphadenopathy. LUNGS: Clear to auscultation bilaterally, no respiratory distress. CARDIAC: Regular rate and rhythm, normal S1/S2, no murmurs, rubs, or gallops. ABDOMEN: Soft, non-tender, non-distended, bowel sounds present. EXT/MSK: No clubbing, cyanosis, or edema. SKIN: No rash, no jaundice. NEURO: No tremor, no asterixis. LABS/STUDIES: Recent Labs Units 07/26/24 0724 12/17/23 0834 04/21/23 1223 SODIUM - [facility] mmol/L 141 141 140 POTASSIUM - [facility] mmol/L 4.7 4.2 4.0 CHLORIDE - [facility] mmol/L 103 105 104 CO2 - [facility] mmol/L 27 25 27 BUN - [facility] mg/dL 12 11 8 CREATININE - [facility] mg/dL 0.7 0.6 0.5 Recent Labs Units 04/21/23 1223 WBC K/uL 7.73 HGB g/dL 12.4 PLT K/uL 313 Recent Labs Units 07/26/24 0724 12/17/23 0834 04/21/23 1223 CALCIUM - [facility] mg/dL 10.0 9.6 9.9 No results for input(s): "HGBA1C" in the last 96561 hours. No results for input(s): "MICROALBUMIN", "PROCRRATIO" in the last 55554 hours. ASSESSMENT AND PLAN Lis was seen today for return visit. Diagnoses and all orders for this visit: Dysuria - URINALYSIS WITH MICROSCOPIC EXAM; Future Patient with urinary frequency. Will check urine microscopy today. I encouraged her to increase water intake. Chronic membranous glomerulonephritis Patient with the membranous nephropathy which presented as nephrotic syndrome in 2019. Patient had renal biopsy and was treated with tacrolimus 1 mg twice daily but this was stopped about 3 years agodue to fear of COVID infection. Patient has not had any signs of relapse. Renal function remains normal. She had no albuminuria. We discussed signs of nephrotic syndrome such as edema, shortness of breath, red urine, frothy urine or high blood pressure. Patient does to notify me if such symptoms. Will have repeat urine and BMP in 6 months. Benign essential microscopic hematuria Will check urine microscopy today. Follow Up: Return in about 6 months (around 01/24/2025). Soniya Wilson MD Nephrology, [address] [address] This note was generated with the help of voice recognition software. Please excuse for errors. documented in this encounter Nursing Notes * Ana Frank LPN - 07/27/2024 2:51 PM EDT Patient identified by verbal name and date of . Chief Complaint Patient presents with Return Visit Membranous nephropathy No recent inpatient hospital stays or ED visits Pt notes SOB over last week Denies lower extremity edema Last labs 05/25/24 documented in this encounter Plan of Treatment Scheduled Orders Name Type Priority Associated Diagnoses Orde r Schedule URINALYSIS WITH MICROSCOPIC EXAM Lab Routine Dysuria Expected: 07/27/2024, Expires: 07/27/2025 Health Maintenance Due Date Last Done Comments [...] as of this encounter Visit Diagnoses Diagnosis Dysuria- Primary Chronic membranous glomerulonephritis Chronic glomerulonephritis with lesion of membranous glomerulonephritis Benign essential microscopic hematuria Microscopic hematuria documented in this encounter Care Teams Male Impersonator Relationship Specialty Start Date End Date Sarahi Casas MD [address] [place] [address] PCP - General Internal Medicine 04/14/23 documented as of this encounter
--- OUTSIDE RECORDS SUMMARY | 2024-08-10 09:13 | External Medical Summary | Summary of Care ---
Author Name Unknown Organization [facility] Address [address] [place] [address] Phone [phone] Care Team Providers Care Apn Name Role Phone Sarahi Casas MD Primary Care Provider + Encounter Details Date Type Department Care Team (Late st Contact Info) Description 07/31/2024 Orders Only PATIENT PORTAL DO NOT DELETE THIS DEPT USED BY NILA GRANGER [id number] Allergies Active Allergy Reactions Criticality Noted Date Comments Penicillins Rash 03/29/2023 documented as of this encounter (statuses as of 07/31/2024) Medications No known medicationsdocumented as of this encounter (statuses as of 07/31/2024) Active Problems Problem Noted Date Diagnosed Date Hypercholesterolemia 04/12/2023 documented as of this encounter (statuses as of 07/31/2024) Immunizations Name Administration Dates Next Due Seasonal [...] as of this encounter Plan of Treatment Health Maintenance Due Date Last Done Comments [...] Not on filedocumented as of this encounter Care Teams Apn Relationship Specialty Start Date End Date Sarahi Casas MD [address] [place] [address] PCP - General Internal Medicine 04/14/23 documented as of this encounter
--- OUTSIDE RECORDS SUMMARY | 2024-08-10 09:13 | External Medical Summary | Summary of Care ---
Author Name Unknown Organization [facility] Address [address] [place] [address] Phone [phone] Care Team Providers Care Negative Restorer Name Role Phone Sarahi Casas MD Primary Care Provider + Reason for Visit * Reason Comments Outpatient Testing Encounter Details Date Type Department Care Team (Late st Contact Info) Description 07/26/2024 7:10 AM EDT Laboratory Laboratory [facility] [address] [place] [address] [place], Lab Scenery [address] [place] [address] Arrived Allergies Active Allergy Reactions Criticality Noted Date Comments Penicillins Rash 03/29/2023 documented as of this encounter (statuses as of 07/26/2024) Medications No known medicationsdocumented as of this encounter (statuses as of 07/26/2024) Active Problems Problem Noted Date Diagnosed Date Hypercholesterolemia 04/12/2023 documented as of this encounter (statuses as of 07/26/2024) Social History Tobacco Use Types Packs/Day Years [...] Care Team (Late st Contact Info) Description 07/26/2024 8:40 AM EDT Immunization Ancillary [facility] [place] [address] [facility] [place] [address] Sp, Flu Shot Clinic 200 [facility] [place] [address] 07/27/2024 3:00 PM EDT Office Visit Nephrology, [facility] 200 [facility] [place] [address] Soniya Wilson MD [address] [place] [address] [place] [address] Pending Results Name Type Priority Associated Diagnoses Date /Time BASIC METABOLIC PANEL Lab Routine 7:24 AM EDT PROTEIN/ CREATININE RATIO, URINE Lab Routine 07/26/2024 7:29 AM EDT Health Maintenance Due Date Last Done Comments Yearly Wellness Visit 2006 DTap/Tdap Vaccines (6 - Tdap) 2013 09/25/2007, 02/17/2005, 12/17/2003, Additional history exists Gonorrhea / Chlamydia Screen 2017 HIV Screening 2017 HPV (Gardasil) Vaccine (1 - 3-dose series) 2017 Hepatitis C Screening 2020 Pap Smear 2023 Depression Monitoring 06/03/2024 06/03/2023 COVID-19 Vaccine ( season) 2024 05/20/2022, 06/25/2021, 03/16/2021, Additional history exists Influenza Vaccine (FLU shot) (#1) 2024 11/09/2012 Hepatitis B Vaccine Completed 02/17/2005, 02/19/2004, 12/17/2003 MENINGOCOCCAL (MENACTRA/MENVEO) Aged Out No longer eligible based on patient's age to complete this topic Pneumococcal Vaccine: Pediatrics (0 to 5 Years) and At-Risk Patients (6 to 64 Years) Aged Out No longer eligible based on patient's age to complete this topic documented as of this encounter Medical Devices Not on filedocumented as of this encounter Care Teams Negative Restorer Relationship Specialty Start Date End Date Sarahi Casas MD [address] [place] [address], [place] [address] PCP - General Internal Medicine 04/14/23 documented as of this encounter
--- OUTSIDE RECORDS SUMMARY | 2024-08-10 09:13 | External Medical Summary | Summary of Care ---
Author Name Unknown Organization [facility] Address [address] [place] [address] Phone [phone] Care Team Providers Care Food Trades Assistants Name Role Phone Sraahi Casas MD Primary Care Provider + Reason for Visit * Reason Onset Date Comments Medication Administration 07/26/2024 Flu an d/or Pneumo Inj Encounter Details Date Type Department Care Team (Late st Contact Info) Description 07/26/2024 8:40 AM EDT Immunization Ancillary [facility] 200 [place] [address] Sp, Flu Shot Clinic 200 [place] [address] Need for prophylactic vaccination and inoculation against influenza* Allergies Active Allergy Reactions Criticality Noted Date Comments Penicillins Rash 03/29/2023 documented as of this encounter (statuses as of 07/26/2024) Medications No known medicationsdocumented as of this encounter (statuses as of 07/26/2024) Active Problems Problem Noted Date Diagnosed Date Hypercholesterolemia 04/12/2023 documented as of this encounter (statuses as of 07/26/2024) Immunizations Name Administration Dates Next Due Seasonal [...] on file documented as of this encounter Patient Instructions * Patient Instructions* Melania Rojas MED ASSIST - 07/26/2024 8:41 AM EDT ~~PATIENT INSTRUCTIONS FOR FLU SHOT~~ Possible side effects of influenza vaccine, (flu shot), are usually mild and include: 1. Soreness or redness at injection site 2. Low grade fever 3. Body aches You may use Tylenol/Acetaminophen as needed for these symptoms. LET YOUR DOCTOR KNOW IMMEDIATELY IF YOU HAVE DIFFICULTY BREATHING OR SWALLOWING, EXPERIENCE ITCHINGOF FEET OR HANDS, HAVE SWELLING OF EYES, FACE OR INSIDE OF NOSE. documented in this encounter Progress Notes * Melania Rojas MED ASSIST - 07/26/2024 8:40 AM EDT PRE - ADMINISTRATION DOCUMENTATION Are you experiencing any cold symptoms or fever? No Have you had Guillain-Cowan Syndrome (an illness that causes paralysis) within the last 6 weeks? No Have you had the flu shot in the past? YES Have you ever had a reaction to the flu shot? No JOSEFINA Sosa, 07/26/2024 8:40 AM Immunization Administration Documentation Time Out Procedure Performed: Yes Patient Identified (Ask Name/Date of ): Yes Does the patient have a fever greater than 101 degrees today? No Patient allergic to latex? No VFC Stock: No Immunization(s) verified: Yes, Immunization Name: Flu, VIS Sheet(s) given: Yes Verified Side and Site: Yes Verified Shot(s) with Parent(s)/Patient: Yes documented in this encounter Plan of Treatment Upcoming Encounters Date Type Department Care Team (Late st Contact Info) Description 07/27/2024 3:00 PM EDT Office Visit Nephrology, [facility] 200 [place] [address] Soniya Wilson MD [address] [place] [address] Health Maintenance Due Date Last Done Comments [...] as of this encounter Visit Diagnoses Diagnosis Need for prophylactic vaccination and inoculation against influenza- Primary documented in this encounter Care Teams Food Trades Assistants Relationship Specialty Start Date End Date Sarahi Casas MD [address] [facility] [place] [address] PCP - General Internal Medicine 04/14/23 documented as of this encounter
--- OUTSIDE RECORDS SUMMARY | 2024-08-10 09:13 | External Medical Summary ---
Author Name Unknown Address Unknown Organization K01[place] [place] [address] [place] [address] Laboratory Report Ordering Provider Test Date Status ARYA KAMINSKI 07/26/2024 07:29:53 Final Normal: <150 mg/ g creatinine
High: 150-500 mg/g creatinine
Very High: >500 mg/g creatinine
Nephrotic: >3000 mg/g creatinine Observation Date Value Abnormality Reference (Units ) Status Protein/Creatinine [Ratio] in Urine 07/26/2024 07:29:53 72 <150 (mg/g ) Final Protein, Urine 07/26/2024 07:29:53 20 (mg/dL) Final Creatinine, Urine 07/26/2024 07:29:53 279 (mg/dL) Final Performing Location [facility] [place] [address] [place] [address]
--- OUTSIDE RECORDS SUMMARY | 2024-08-10 09:13 | External Medical Summary ---
Author Name Unknown Address Unknown Organization K09:[facility] [address] [place] [address] Laboratory Report Ordering Provider Test Date Status ISAEL MOONEY 08/09/2024 11:04:16 Final Observation Date Value Abnormality Reference (Units ) Status Albumin 08/09/2024 11:04:16 4.7 3.8-5.0 (g/dL) Final AST (Aspartate aminotransferase) 08/09/2024 11:04:16 14 10-35 (U/L) Final Alk Phos 08/09/2024 11:04:16 49 35-130 (U/L) Final ALT (Alanine aminotransferase) 08/09/2024 11:04:16 10 10-35 (U/L) Final Bilirubin, Total 08/09/2024 11:04:16 <0.2 <=1.2 (mg/dL) Final Bilirubin, Direct 08/09/2024 11:04:16 <0.2 0.0-0.3 (mg/dL) Final Protein 08/09/2024 11:04:16 7.2 6.0-8.3 (g/dL) Final Performing Location [facility] [address] [place] [address]
--- OUTSIDE RECORDS SUMMARY | 2024-08-10 09:13 | External Medical Summary | Summary of Care ---
Author Name Unknown Organization [facility] Address [address] [place] [address] Phone [phone] Care Team Providers Care Vest Maker Name Role Phone Sarahi Casas MD Primary Care Provider + Reason for Visit * Reason Comments Outpatient Testing Encounter Details Date Type Department Care Team (Late st Contact Info) Description 07/26/2024 7:10 AM EDT Laboratory Laboratory [facility] [address] [place] [address] [place], Lab Scenery [address] [place] [address] Arrived Allergies Active Allergy Reactions Criticality Noted [...] Description 07/26/2024 8:40 AM EDT Immunization Ancillary [facility] [place] [address] [facility] [place] [address] Sp, Flu Shot Clinic [address] [facility] [place] [address] 07/27/2024 3:00 PM EDT Office Visit Nephrology, [facility] [address] [place] [address] Soniya Wilson MD [address] [place] [address] [place] [address] Pending Results Name Type Priority [...] filedocumented as of this encounter Care Teams Vest Maker Relationship Specialty Start Date End Date Sarahi Casas MD [address] [place] [address], [place] [address] PCP - General Internal Medicine 04/14/23 documented as of this encounter
--- OUTSIDE RECORDS SUMMARY | 2024-08-10 09:13 | External Medical Summary ---
Author Name Unknown Address Unknown Organization K09:[facility] [place] [address] Laboratory Report Ordering Provider Test Date Status ARYA KAMINSKI 07/26/2024 07:24:29 Final Observation Date Value Abnormality Reference (Units ) Status BUN 07/26/2024 07:24:29 12 6-20 (mg/dL) Final Creatinine 07/26/2024 07:24:29 0.7 0.5-1.0 (mg/dL) Final Glomerular filtration rate/1.73 sq M.predicted [Volume Rate/Area] in Serum, Plasma or Blood by Creatinine-based formula (CKD-EPI) 07/26/2024 07:24:29 >90 >=60 (mL/min) Final eGFR is calculated based on the CKD-EPI 2020 equation. Sodium 07/26/2024 07:24:29 141 135-146 (m mol/L) Final Potassium 07/26/2024 07:24:29 4.7 3.5-5.1 (m mol/L) Final Cl 07/26/2024 07:24:29 103 98-107 (mm ol/L) Final CO2 07/26/2024 07:24:29 27 22-32 (mmo l/L) Final Anion gap 07/26/2024 07:24:29 11 7-15 (mmol /L) Final Glucose 07/26/2024 07:24:29 91 70-120 (mg /dL) Final Calcium 07/26/2024 07:24:29 10.0 8.4-10.2 ( mg/dL) Final Performing Location [facility] [place] [address]
--- OUTSIDE RECORDS SUMMARY | 2024-08-10 09:13 | External Medical Summary | Summary of Care ---
Author Name Unknown Organization [facility] Address [address] [place] [address] Phone [phone] Care Team Providers Care Rental Sales Representative Name Role Phone Sarahi Casas MD Primary Care Provider + Reason for Visit * Reason Onset Date Comments Test Results 07/26/2024 Encounter Details Date Type Department Care Team ([facility] st Contact Info) Description 07/26/2024 Telephone Nephrology, [address] [address] Soniya Wilson MD [address] [place] [address] Test Results Allergies Active Allergy Reactions Criticality Noted Date [...] on file documented as of this encounter Miscellaneous Notes * Telephone Encounter - Chyna Rosenthal RN - 07/26/2024 12:22 PM EDT LMAM on an identified line regarding stable lab results. Call back number given. * Telephone Encounter - Chyna Rosenthal RN - 07/26/2024 12:21 PM EDT ----- Message from Soniya Wilson MD sent at 07/26/2024 12:03 PM EDT ----- Kidney function is normal which is good. No changes. Dr. Wilson documented in this encounter Plan of Treatment Upcoming Encounters Date Type Department Care Team (Late st Contact Info) Description 07/27/2024 3:00 PM EDT Office Visit Nephrology, [facility] [address] [place] [address] Soniya Wilson MD [address] [place] [address] [place] [address] Health Maintenance Due Date Last Done [...] filedocumented as of this encounter Care Teams Rental Sales Representative Relationship Specialty Start Date End Date Sarahi Casas MD [facility] [place] [address] PCP - General Internal Medicine 04/14/23 documented as of this encounter
[2024-08-10] MEDS ORDERED: ARIPiprazole 5 MG TAB PO PRN (13:08)
[2024-08-10] MEDS: ARIPiprazole 5 MG TAB PO SCH (13:52)
[2024-08-11 08:51] LABS: Estimated Average Glucose 111 mg/dl; Hemoglobin A1C 5.5 % (4.5-5.6)
[2024-08-11 09:15] LABS: Chol HDL Ratio 3.9 (0-5)
--- NOTE | 2024-08-11 23:53 | Psychiatric Progress Note ---
Date of Service August 11, 2024 Impression / Recommendations Impression Agree with prior impression: "YAEL CASTELAN is a 23-year-old woman and [employer] senior who currently lives with her mother and brothers in [place], has no formal psychiatric history, and was admitted on 08/09/24 19:33 on a 201 voluntary commitment for paranoia and psychosis interfering with her ability to function. She has no outpatient services and is becoming increasingly distressed due to intensifying auditory hallucinations, complex delusions and paranoia impacting her sleep and ability to function at school. Diagnostically consistent with unspecified psychosis with differential including delusion disorder vs schizophrenia vs bipolar affective disorder current episode of zeeshan (rapid speech but no other symptoms of zeeshan observed so far) vs secondary to seizure episodes (unclear if past episodes were psychogenic, unclear if some of her current symptoms may represent ongoing focal aware seizures at times but unlikely to cause consistent auditory hallucinations and complex delusions). Discussed medication treatment options in detail. Discussed risks, benefits and alternatives. Patient would like to start and consented to Abilify for unspecified psychosis. Reviewed side effects including but not limited to: movement (TD, NMS), cardiac (QTc prolongation), and metabolic (stroke, insulin resistance) and necessity for fasting lipid and glucose labwork and AIMS done with score of 0. MNPR due to psychosis, paranoia" Overall I spent a total of 50 minutes for this admission including review of chart, review of labwork, direct evaluation of the patient, counseling the patient, reviewing medication, risk assessment, discussion with nursing and documentation in the electronic health record. (1) Psychosis: (2) Hallucinations: Plan 08/12/24 Continue current medication regimen & treatment plan. 08/10/2024: The patient was admitted to the [facility] ([facility] mental [facility]) on q15 min checks (behavioral with suicide precautions) for safety. The patient will participate in group, recreational, and milieu therapies and will be offered additional individual and family sessions as clinically appropriate. -Start abilify 5mg qd with additional 2.5mg po BID prn for psychosis -HbA1c and fasting lipid panel tomorrow AM -Seizure precautions Inventory Assets Strengths: supportive relationships, willing to get treatment Needs: safety and stabilization, medication adjustment, additional coping skills, increased outpatient services Suicide Risk Level Suicide Risk Level: Moderate (q15 min suicide checks) (denies SI but having auditory hallucinations which are distressing and can be command in nature at times (though never to harm herself), feels safe on the unit, feels able to ask for support) Risk Factors Assessment Male: No : No Do You Have Access To A Gun?: No Mental Health Diagnoses: Yes Substance Use Disorders: No Previous Attempt: No Family History of Suicide: No Previous Psychiatric Hospitalization: No Hopelessness: No Protective Factors Assessment Employed: No Stable Relationships: Yes Supportive Family: Yes Interval History Chief Complaint Ongoing intrusive ruminations with delusional nature Review of Systems Sleep Information Total Hours of Sleep: 6.5 Meal Information Percent Meal Consumed - Breakfast: 100 Percent Meal Consumed - Lunch: 100 Percent Meal Consumed - Dinner: 100 Subjective Subjective Patient was seen & assessed & interval progress was reviewed with nursing. Was quite pleasant throughout interview and reported feeling an overall impro vement since admission. Described being better able to identify delusional thoughts & work through them at times. As patient continued talking however, was noted to become increasingly more delusional including belief of being stalked by peer and ideas of reference. Also described ongoing AH of negative voices talking to her - at times was able to identify that they may not be real and that they have been less frequent and less intrusive, other times would refer to them as real. Overall mood and anxiety levels described as improved in the context of psychotic symptoms starting to improve to some degree. Tolerating medications well. Denies experiencing side effects, including akithisia, increased appetite, weight gain, sedation. Also spent time introducing myself to patient and reviewing history. Physical Exam Mental Examination Insight: Fair Judgement: Fair Psychiatric Orientation: alert and oriented x 3 Apperance: appropriately dressed and appropriately groomed Eye Contact: good eye contact Motor Behavior: no abnormal motor movements Speech: + abnormal rate/rhythm/volume of speech (hyperverbal, rapid but interruptable) Affect: + anxious affect and + constricted affect Mood: + anxious mood Thought Process: + tangential thought process Thought Content: + preoccupation, + obsessions, + paranoid, + delusions, + ideas of reference, + thought insertion and + persecution Suicidal Thoughts: denies suicidal thoughts (sometimes passive thoughts), denies suicidal plan and denies suicidal intent Homicidal Thoughts: denies homicidal thoughts Hallucinations: + auditory hallucinations and + visual hallucinations Cognition: recent memory grossly intact, remote memory grossly intact, attention grossly intact and language grossly intact Estimated Intelligence: consistent with education level Insight: + limited insight Judgment: + fair judgement Vital Signs (Past 24 Hours) Last Vital Signs Temp 36.9 C 08/11/24 06:28 Pulse 83 08/11/24 06:28 Resp 16 08/11/24 06:28 BP 128/87 08/11/24 06:28 Pulse Ox 99 08/10/24 06:00 O2 Del Method Room Air 08/10/24 06:00 Results & Data ([facility]) Laboratory Results Laboratory Results - last 24 hr 08/11/24 08:04 Estimat Average Glucose 111 Hemoglobin A1c 5.5 Triglycerides 85 Cholesterol 167 LDL Cholesterol, Calc 107 VLDL Cholesterol, Calc 17 HDL Cholesterol 43 Cholesterol/HDL Ratio 3.9 Current Inpatient Medications Current Inpatient Medications: Current Inpatient Medications Acetaminophen (Acetaminophen 325 Mg Tab) 650 mg PO Q4H PRN PRN Reason: Headache or Minor Fever Stop: 09/08/24 19:04 Al Hydrox/Mg Hydrox/Simethicone (Aluminum/Magnesium Susp 30 Ml Udc) 30 ml PO Q4H PRN PRN Reason: GI Upset Stop: 09/08/24 19:04 Aripiprazole (Aripiprazole 5 Mg Tab) 5 mg PO QAM DULCE Stop: 09/09/24 13:09 Last Admin: 08/11/24 08:38 Dose: 5 mg Aripiprazole (Aripiprazole 5 Mg Tab) 2.5 mg PO BID PRN PRN Reason: psychosis Stop: 09/09/24 20:59 Bismuth Subsalicylate (Bismuth Subsalicylate 262 Mg Chew) 2 tab PO Q30M PRN PRN Reason: Loose Stool/Diarrhea Stop: 09/08/24 19:04 Hydroxyzine HCl (Hydroxyzine Hcl 25 Mg Tab) 50 mg PO HSZ PRN PRN Reason: Insomnia Stop: 09/08/24 19:04 Hydroxyzine HCl (Hydroxyzine Hcl 25 Mg Tab) 25 mg PO Q4H PRN PRN Reason: Anxiety Stop: 09/08/24 19:04 Magnesium Hydroxide (Magnesium Hydroxide Susp 30 Ml Udc) 30 ml PO DAILY PRN PRN Reason: Constipation Stop: 09/08/24 19:04 Sodium Chloride (Sodium Chloride 0.65% Na Soln 45 Ml ([place])) 1 - 2 sprays NA PRN PRN PRN Reason: Nasal Dryness/Congestion Stop: 09/08/24 19:04 Mental Health & Subst Abuse Tx Psychiatrist Name of Psychiatrist: Dav (new referral) Psychiatrist's Therapist Name of Therapist: N/A Post Discharge Appointments Primary Care Physician Name Of Family Doctor/PCP: [facility] Specialist Name of Specialist: [employer] [facility] [employer] [facility] (1) Psychosis Psychosis type: unspecified psychosis type Qualified Code(s): F29 - Unspecified psychosis not due to a substance or known physiological condition
--- NOTE | 2024-08-12 21:50 | Psychiatric Progress Note ---
Date of Service August 12, 2024 Impression / Recommendations Impression Agree with prior: "YAEL CASTELAN is a 23-year-old woman and [employer] senior who currently lives with her mother and brothers in [place], has no formal psychiatric history, and was admitted on 08/09/24 19:33 on a 201 voluntary commitment for paranoia and psychosis interfering with her ability to function. She has no outpatient services and is becoming increasingly distressed due to intensifying auditory hallucinations, complex delusions and paranoia impacting her sleep and ability to function at school. Diagnostically consistent with unspecified psychosis with differential including delusion disorder vs schizophrenia vs bipolar affective disorder current episode of zeeshan (rapid speech but no other symptoms of zeeshan observed so far) vs secondary to seizure episodes (unclear if past episodes were psychogenic, unclear if some of her current symptoms may represent ongoing focal aware seizures at times but unlikely to cause consistent auditory hallucinations and complex delusions)." MNPR due to psychosis, paranoia Overall I spent a total of 35 minutes for this admission including review of chart records, review of labwork, direct evaluation of the patient, counseling the patient, ordering medication, risk assessment, and documentation in the electronic health record. (1) Psychosis: (2) Hallucinations: Plan 08/12/24: Increase Abilify to 7mg - although only taking a few days, symptoms are significant. 08/11/24: No changes to plan. 08/10/2024: The patient was admitted to the [facility] ([facility]) on q15 min checks (behavioral with suicide precautions) for safety. The patient will participate in group, recreational, and milieu therapies and will be offered additional individual and family sessions as clinically ap propriate. -Start abilify 5mg qd with additional 2.5mg po BID prn for psychosis -HbA1c and fasting lipid panel tomorrow AM -Seizure precautions Inventory Assets Strengths: supportive relationships, willing to get treatment Needs: safety and stabilization, medication adjustment, additional coping skills, increased outpatient services Suicide Risk Level Suicide Risk Level: Moderate (q15 min suicide checks) (denies SI but having auditory hallucinations which are distressing and can be command in nature at times (though never to harm herself), feels safe on the unit, feels able to ask for support) Risk Factors Assessment Male: No : No Do You Have Access To A Gun?: No Mental Health Diagnoses: Yes Substance Use Disorders: No Previous Attempt: No Family History of Suicide: No Previous Psychiatric Hospitalization: No Hopelessness: No Protective Factors Assessment Employed: No Stable Relationships: Yes Supportive Family: Yes Interval History Identifying Information YAEL CASTELAN is a 23-year-old woman and [employer] senior who currently lives with her mother and brothers in [place], has no formal psychiatric history, and was admitted on 08/09/24 19:33 on a 201 voluntary commitment for paranoia and psychosis interfering with her ability to function. Chief Complaint AH with residual delusions Review of Systems Sleep Information Total Hours of Sleep: 7.25 Meal Information Percent Meal Consumed - Breakfast: 100 Percent Meal Consumed - Lunch: 90 Percent Meal Consumed - Dinner: 100 Subjective Subjective Patient was seen & assessed and interval progress reviewed with treatment team. Patient reports that continues to gradually feel better and is at times able to ignore AH and recognize delusional thoughts. However says that AH can still be disruptive and difficult to manage. As before, at times refers to AH as not real and part of illness but other times talks about them as if they are real people. Persecutory delusions and paranoia persist as well - difficult to gauge if any further improved from yesterday. Although patient initially linear after some discussion is noted to become c ircumstantial and at times difficult to follow. Remains quite logorrheic. Reports anxiety about missing school and how this may affect her grades - discussed determining if school support services have alerted teachers as this would help her feel less anxious. Visible in the milieu - interacting with peers and staff, participating in groups. Physical Exam Mental Examination Appearance: Well Groomed Eye Contact: Maintains Eye Contact Motor Behavior: Unremarkable Speech: Excessive and Tangential Mood: Anxious Affect: Anxious Thought Process: Disorganized, Racing and Tangential Hallucinations: Auditory and Visual Insight: Fair Judgement: Fair Psychiatric Orientation: alert and oriented x 3 Apperance: appropriately dressed and appropriately groomed Eye Contact: good eye contact Motor Behavior: no abnormal motor movements Speech: + abnormal rate/rhythm/volume of speech (hyperverbal, rapid but interruptable) Affect: + anxious affect Mood: + anxious mood Thought Process: + circumstantial thought process and + looseness of associations Thought Content: + preoccupation, + paranoid, + delusions, + ideas of reference, + thought insertion and + persecution Suicidal Thoughts: + reports suicidal thoughts, + reports suicidal plan and + reports suicidal intent Homicidal Thoughts: denies homicidal thoughts Hallucinations: + auditory hallucinations and + visual hallucinations Cognition: recent memory grossly intact, remote memory grossly intact, attention grossly intact and language grossly intact Estimated Intelligence: consistent with education level Insight: + limited insight Judgment: + fair judgement Vital Signs (Past 24 Hours) Last Vital Signs Temp 36.7 C 08/12/24 06:38 Pulse 91 H 08/12/24 06:39 Resp 16 08/12/24 06:38 BP 118/81 08/12/24 06:39 Pulse Ox 99 08/10/24 06:00 O2 Del Method Room Air 08/10/24 06:00 Results & Data ([facility]) Current Inpatient Medications Current Inpatient Medications: Current Inpatient Medications Acetaminophen (Acetaminophen 325 Mg Tab) 650 mg PO Q4H PRN PRN Reason: Headache or Minor Fever Stop: 09/08/24 19:04 Al Hydrox/Mg Hydrox/Simethicone (Aluminum/Magnesium Susp 30 Ml Udc) 30 ml PO Q4H PRN PRN Reason: GI Upset Stop: 09/08/24 19:04 Aripiprazole (Aripiprazole 5 Mg Tab) 5 mg PO QAM DULCE Stop: 09/09/24 13:09 Last Admin: 08/12/24 08:55 Dose: 5 mg Aripiprazole (Aripiprazole 5 Mg Tab) 2.5 mg PO BID PRN PRN Reason: psychosis Stop: 09/09/24 20:59 Bismuth Subsalicylate (Bismuth Subsalicylate 262 Mg Chew) 2 tab PO Q30M PRN PRN Reason: Loose Stool/Diarrhea Stop: 09/08/24 19:04 Hydroxyzine HCl (Hydroxyzine Hcl 25 Mg Tab) 50 mg PO HSZ PRN PRN Reason: Insomnia Stop: 09/08/24 19:04 Hydroxyzine HCl (Hydroxyzine Hcl 25 Mg Tab) 25 mg PO Q4H PRN PRN Reason: Anxiety Stop: 09/08/24 19:04 Magnesium Hydroxide (Magnesium Hydroxide Susp 30 Ml Udc) 30 ml PO DAILY PRN PRN Reason: Constipation Stop: 09/08/24 19:04 Sodium Chloride (Sodium Chloride 0.65% Na Soln 45 Ml ([place])) 1 - 2 sprays NA PRN PRN PRN Reason: Nasal Dryness/Congestion Stop: 09/08/24 19:04 Mental Health & Subst Abuse Tx Psychiatrist Name of Psychiatrist: Dav (new referral) Psychiatrist's Therapist Name of Therapist: N/A Post Discharge Appointments Primary Care Physician Name Of Family Doctor/PCP: [facility] Specialist Name of Specialist: [employer] [facility] Other #1: Name of Aftercare Appointment: [facility] post hospitalization meeting Phone Number of Aftercare Appointment: [phone] Date of Aftercare Appointment: 08/20/24 Time of Aftercare Appointment: 2:30PM Aftercare Appointment Comment: Post hospitalization meeting will be held via zoom (1) Psychosis Psychosis type: unspecified psychosis type Qualified Code(s): F29 - Unspecified psychosis not due to a substance or known physiological condition
[2024-08-13] MEDS: ARIPiprazole 5 MG TAB PO SCH (08:35)
--- NOTE | 2024-08-13 21:38 | Psychiatric Progress Note ---
Date of Service August 13, 2024 Impression / Recommendations Impression Agree with prior impression: "YAEL CASTELAN is a 23-year-old woman and [employer] senior who currently lives with her mother and brothers in [place], has no formal psychiatric history, and was admitted on 08/09/24 19:33 on a 201 voluntary commitment for paranoia and psychosis interfering with her ability to function. She has no outpatient services and is becoming increasingly distressed due to intensifying auditory hallucinations, complex delusions and paranoia impacting her sleep and ability to function at school. Diagnostically consistent with unspecified psychosis with differential including delusion disorder vs schizophrenia vs bipolar affective disorder current episode of zeeshan (rapid speech but no other symptoms of zeeshan observed so far) vs secondary to seizure episodes (unclear if past episodes were psychogenic, unclear if some of her current symptoms may represent ongoing focal aware seizures at times but unlikely to cause consistent auditory hallucinations and complex delusions)." Overall I spent a total of 25 minutes for this admission including review of chart, review of labwork, direct evaluation of the patient, counseling the patient, reviewing medication, risk assessment, discussion with nursing and documentation in the electronic health record. (1) Psychosis: (2) Hallucinations: Plan 08/12/24 Continue current medication regimen & treatment plan. 08/10/2024: The patient was admitted to the [facility] on q15 min checks (behavioral with suicide precautions) for safety. The patient will participate in group, recreational, and milieu therapies and will be offered additional individual and family sessions as clinically appropriate. -Start abilify 5mg qd with additional 2.5mg po BID prn for psychosis -HbA1c and fasting lipid panel tomorrow AM -Seizure precautions Inventory Assets Strengths: supportive relationships, willing to get treatment Needs: safety and stabilization, medication adjustment, additional coping skills, increased outpatient services Suicide Risk Level Suicide Risk Level: Moderate (q15 min suicide checks) (denies SI but having auditory hallucinations which are distressing and can be command in nature at times (though never to harm herself), feels safe on the unit, feels able to ask for support) Risk Factors Assessment Male: No : No Do You Have Access To A Gun?: No Mental Health Diagnoses: Yes Substance Use Disorders: No Previous Attempt: No Family History of Suicide: No Previous Psychiatric Hospitalization: No Hopelessness: No Protective Factors Assessment Employed: No Stable Relationships: Yes Supportive Family: Yes Interval History Identifying Information YAEL CASTELAN is a 23-year-old woman and [employer] senior who currently lives with her mother and brothers in [place], has no formal psychiatric history, and was admitted on 08/09/24 19:33 on a 201 voluntary commitment for paranoia and psychosis interfering with her ability to function. Chief Complaint "I had a tough morning but feel better now". Review of Systems Sleep Information Total Hours of Sleep: 8 Meal Information Percent Meal Consumed - Breakfast: 25 Percent Meal Consumed - Lunch: 100 Percent Meal Consumed - Dinner: 100 Subjective Subjective Patient was seen & assessed and interval progress reviewed with treatment team. Reports having a difficult morning due to disruptive AH and paranoia, but was able to eventually work through this. Identifies being around others as helpful, helps to distract from voices. Also finds using earplugs helpful for quieting voices. Does express worry about maintaining adequate social interaction once discharged as she does not many friends at school and [place] to easily commute. Discussed possibility of staying on campus after classes and going to a student interest group. Delusions persist - acknowledges spontaneously that she often has difficulty with discerning reality from delusions. Also describes questioning herself when she reality tests AH - becomes preoccupied about "but if they're not real what are they doing in my head? I just dont understand why they can't stop commenting on everything I do! Don't they have anything better to do?". Reports that part of her is ready to be discharged and get back to school but another part of her worries about managing symptoms when not in supportive structure of hospital. Visible in the milieu - interacting with peers and staff, participating in groups. Physical Exam Mental Examination Appearance: Well Groomed Eye Contact: Maintains Eye Contact Motor Behavior: Unremarkable Speech: Excessive and Circumstantial Mood: Anxious Affect: Anxious Thought Process: Circumstantial and Racing Hallucinations: Auditory and Visual Insight: Fair Judgement: Fair Psychiatric Orientation: alert and oriented x 3 Apperance: appropriately dressed and appropriately groomed Eye Contact: good eye contact Motor Behavior: no abnormal motor movements Speech: + abnormal rate/rhythm/volume of speech (hyperverbal, rapid but interruptable) Affect: + anxious affect and + constricted affect Mood: + anxious mood Thought Process: + circumstantial thought process Thought Content: + preoccupation, + paranoid, + delusions, + ideas of reference, + thought insertion and + persecution Suicidal Thoughts: + reports suicidal thoughts, + reports suicidal plan and + reports suicidal intent Homicidal Thoughts: denies homicidal thoughts Hallucinations: + auditory hallucinations and + visual hallucinations Cognition: recent memory grossly intact, remote memory grossly intact, attention grossly intact and language grossly intact Estimated Intelligence: consistent with education level Insight: + limited insight Judgment: + fair judgement Vital Signs (Past 24 Hours) Last Vital Signs Temp 37 C 08/13/24 06:49 Pulse 70 08/13/24 06:49 Resp 16 08/13/24 06:49 BP 126/87 08/13/24 06:49 Pulse Ox 99 08/10/24 06:00 O2 Del Method Room Air 08/10/24 06:00 Results & Data ([facility]) Current Inpatient Medications Current Inpatient Medications: Current Inpatient Medications Acetaminophen (Acetaminophen 325 Mg Tab) 650 mg PO Q4H PRN PRN Reason: Headache or Minor Fever Stop: 09/08/24 19:04 Al Hydrox/Mg Hydrox/Simethicone (Aluminum/Magnesium Susp 30 Ml Udc) 30 ml PO Q4H PRN PRN Reason: GI Upset Stop: 09/08/24 19:04 Aripiprazole (Aripiprazole 5 Mg Tab) 2.5 mg PO BID PRN PRN Reason: psychosis Stop: 09/09/24 20:59 Aripiprazole (Aripiprazole 5 Mg Tab) 7.5 mg PO QAM DULCE Stop: 09/12/24 08:59 Last Admin: 08/13/24 08:35 Dose: 7.5 mg Bismuth Subsalicylate (Bismuth Subsalicylate 262 Mg Chew) 2 tab PO Q30M PRN PRN Reason: Loose Stool/Diarrhea Stop: 09/08/24 19:04 Hydroxyzine HCl (Hydroxyzine Hcl 25 Mg Tab) 50 mg PO HSZ PRN PRN Reason: Insomnia Stop: 09/08/24 19:04 Hydroxyzine HCl (Hydroxyzine Hcl 25 Mg Tab) 25 mg PO Q4H PRN PRN Reason: Anxiety Stop: 09/08/24 19:04 Magnesium Hydroxide (Magnesium Hydroxide Susp 30 Ml Udc) 30 ml PO DAILY PRN PRN Reason: Constipation Stop: 09/08/24 19:04 Sodium Chloride (Sodium Chloride 0.65% Na Soln 45 Ml ([place])) 1 - 2 sprays NA PRN PRN PRN Reason: Nasal Dryness/Congestion Stop: 09/08/24 19:04 Mental Health & Subst Abuse Tx Psychiatrist Name of Psychiatrist: Dav Mohamud) [address] [place] [address] Psychiatrist's Date Of Appointment With Psychiatric Provider: 08/27/24 - Tuesday Time of Appointment with Psychiatrist: 2:15pm Therapist Name of Therapist: Jaun ([address] [facility] [place] [address]) Therapist's Date of Therapist Appointment: 08/30/24 - Time of Therapist Appointment: 2PM Therapy Appointment Comment: In person Post Discharge Appointments Primary Care Physician Name Of Family Doctor/PCP: Marla Specialist Name of Specialist: [employer] [facility] Other #1: Name of Aftercare Appointment: [facility] post hospitalization meeting Phone Number of Aftercare Appointment: [phone] Date of Aftercare Appointment: 08/20/24 Time of Aftercare Appointment: 2:30PM Aftercare Appointment Comment: Post hospitalization meeting will be held via zoom (1) Psychosis Psychosis type: unspecified psychosis type Qualified Code(s): F29 - Unspecified psychosis not due to a substance or known physiological condition
--- NOTE | 2024-08-14 11:26 | Psychiatric Progress Note ---
Date of Service August 14, 2024 Impression / Recommendations Impression Agree with prior impression: "YAEL CASTELAN is a 23-year-old woman and [employer] senior who currently lives with her mother and brothers in [place], has no formal psychiatric history, and was admitted on 08/09/24 19:33 on a 201 voluntary commitment for paranoia and psychosis interfering with her ability to function. She has no outpatient services and is becoming increasingly distressed due to intensifying auditory hallucinations, complex delusions and paranoia impacting her sleep and ability to function at school. Diagnostically consistent with unspecified psychosis with differential including delusion disorder vs schizophrenia vs bipolar affective disorder current episode of zeeshan (rapid speech but no other symptoms of zeeshan observed so far) vs secondary to seizure episodes (unclear if past episodes were psychogenic, unclear if some of her current symptoms may represent ongoing focal aware seizures at times but unlikely to cause consistent auditory hallucinations and complex delusions)." Patient had been struggling with consistently identifying AH and delusional beliefs, however is increasingly better at reality testing and self-redirecting. Overall I spent a total of 25 minutes for this admission including review of chart, review of labwork, direct evaluation of the patient, counseling the patient, reviewing medication, risk assessment, discussion with nursing and documentation in the electronic health record. (1) Psychosis: (2) Hallucinations: Plan 08/14/24: No changes to plan - if family meeting goes well tomorrow can likely di scharge. 08/13/24: No changes to plan. 08/12/24: Increase Abilify to 7mg - although only taking a few days, symptoms are significant. 08/11/24: No changes to plan. 08/10/2024: The patient was admitted to the [facility] ([facility]) on q15 min checks (behavioral with suicide precautions) for safety. The patient will participate in group, recreational, and milieu therapies and will be offered additional individual and family sessions as clinically appropriate. -Start abilify 5mg qd with additional 2.5mg po BID prn for psychosis -HbA1c and fasting lipid panel tomorrow AM -Seizure precautions Inventory Assets Strengths: supportive relationships, willing to get treatment Needs: safety and stabilization, medication adjustment, additional coping skills, increased outpatient services Suicide Risk Level Suicide Risk Level: Moderate (q15 min suicide checks) (denies SI but having auditory hallucinations which are distressing and can be command in nature at t imes (though never to harm herself), feels safe on the unit, feels able to ask for support) Risk Factors Assessment Male: No : No Do You Have Access To A Gun?: No Mental Health Diagnoses: Yes Substance Use Disorders: No Previous Attempt: No Family History of Suicide: No Previous Psychiatric Hospitalization: No Hopelessness: No Protective Factors Assessment Mosque Beliefs: Yes : No Responsible for Young Children: No Employed: No Stable Relationships: Yes Supportive Family: Yes Good Rapport with Provider: Yes Absence of Any Risk Factors Above: No Interval History Identifying Information YAEL CASTELAN is a 23-year-old woman and [employer] senior who currently lives with her mother and brothers in [place], has no formal psychiatric history, and was admitted on 08/09/24 19:33 on a 201 voluntary commitment for paranoia and psychosis interfering with her ability to function. Chief Complaint "I think I'm feeling better". Review of Systems Sleep Information Total Hours of Sleep: 6.5 Meal Information Percent Meal Consumed - Breakfast: 25 Percent Meal Consumed - Lunch: 100 Percent Meal Consumed - Dinner: 100 Nutrition Comment: Patient ate 100% but only ordered a banana and a cup of coffee. Subjective Subjective Patient was seen & assessed and interval progress reviewed with nursing and social work. Patient appears notably brighter today - reports that it has been easier to ignore the "thoughts" today and describes there being periods throughout the day when she had not even been thinking about AH/delusions. Describes this is a relief and is hopeful that she will continue to improve. Reports that she feels more confident about discharge now and is hopeful that family meeting tomorrow with mom will also be helpful. She does admit that she has worries about resuming schoolwork as she needs to use electronics for this, which was the primary trigger for paranoia. Discussed with her ways to slow down exposure to electronics and how to gradually work through any triggers. Patient was receptive to this and able to meaningfully discuss. Mood described as stable and positive. Sleeping well. Sleep is less logorrheic today and is observed to be significantly less preoccupied today. Refers to AH/delusions as false thoughts much of the time and the few times she refers to them as real is able to redirect self spontaneously. Visible in the milieu - interacting with peers and staff appropriately, participating in groups. Physical Exam Mental Examination Appearance: Well Groomed Eye Contact: Maintains Eye Contact Motor Behavior: Unremarkable Speech: Normal and Circumstantial (minimally, redirects self spontaneously) Mood: Euthymic Affect: Anxious Thought Process: Circumstantial and Racing Hallucinations: Auditory and Visual Insight: Fair Judgement: Fair Psychiatric Orientation: alert and oriented x 3 Apperance: appropriately dressed and appropriately groomed Eye Contact: good eye contact Motor Behavior: no abnormal motor movements Speech: normal rate/rhythm/volume of speech Affect: euthymic affect and + constricted affect Mood: no depressed mood and no anxious mood Thought Process: goal directed thought process and + circumstantial thought process (minimally) Thought Content: + delusions (persist to some degree but is able to reality test) Suicidal Thoughts: denies suicidal thoughts, denies suicidal plan and denies suicidal intent Homicidal Thoughts: denies homicidal thoughts Hallucinations: + auditory hallucinations Cognition: recent memory grossly intact, remote memory grossly intact, attention grossly intact and language grossly intact Estimated Intelligence: consistent with education level Insight: + fair insight Judgment: + fair judgement Vital Signs (Past 24 Hours) Last Vital Signs Temp 36.5 C 08/14/24 06:47 Pulse 80 08/14/24 06:48 Resp 16 08/14/24 06:47 BP 120/92 08/14/24 06:48 Pulse Ox 99 08/10/24 06:00 O2 Del Method Room Air 08/10/24 06:00 A physical exam was performed in the ED by Dr. Driss Gaxiola for the purposes of medical clearance. I accept that physical as correct and adequate for the purposes of the inpatient physical exam. Results & Data ([facility]) Current Inpatient Medications Current Inpatient Medications: Current Inpatient Medications Acetaminophen (Acetaminophen 325 Mg Tab) 650 mg PO Q4H PRN PRN Reason: Headache or Minor Fever Stop: 09/08/24 19:04 Al Hydrox/Mg Hydrox/Simethicone (Aluminum/Magnesium Susp 30 Ml Udc) 30 ml PO Q4H PRN PRN Reason: GI Upset Stop: 09/08/24 19:04 Aripiprazole (Aripiprazole 5 Mg Tab) 2.5 mg PO BID PRN PRN Reason: psychosis Stop: 09/09/24 20:59 Aripiprazole (Aripiprazole 5 Mg Tab) 7.5 mg PO QAM DULCE Stop: 09/12/24 08:59 Last Admin: 08/14/24 09:20 Dose: 7.5 mg Bismuth Subsalicylate (Bismuth Subsalicylate 262 Mg Chew) 2 tab PO Q30M PRN PRN Reason: Loose Stool/Diarrhea Stop: 09/08/24 19:04 Hydroxyzine HCl (Hydroxyzine Hcl 25 Mg Tab) 50 mg PO HSZ PRN PRN Reason: Insomnia Stop: 09/08/24 19:04 Hydroxyzine HCl (Hydroxyzine Hcl 25 Mg Tab) 25 mg PO Q4H PRN PRN Reason: Anxiety Stop: 09/08/24 19:04 Magnesium Hydroxide (Magnesium Hydroxide Susp 30 Ml Udc) 30 ml PO DAILY PRN PRN Reason: Constipation Stop: 09/08/24 19:04 Sodium Chloride (Sodium Chloride 0.65% Na Soln 45 Ml ([place])) 1 - 2 sprays NA PRN PRN PRN Reason: Nasal Dryness/Congestion Stop: 09/08/24 19:04 Mental Health & Subst Abuse Tx Psychiatrist Name of Psychiatrist: Dav Mohamud) [address] [facility] [id number] Psychiatrist's Date Of Appointment With Psychiatric Provider: 08/27/24 - Tuesday Time of Appointment with Psychiatrist: 2:15pm Therapist Name of Therapist: Jaun Fontaine[address] [place] [id number]) Therapist's Date of Therapist Appointment: 08/30/24 - Time of Therapist Appointment: 2PM Therapy Appointment Comment: In person Post Discharge Appointments Primary Care Physician Name Of Family Doctor/PCP: S Specialist Name of Specialist: [employer] [facility] Other #1: Name of Aftercare Appointment: [facility] [address] [facility] post hospitalization meeting Phone Number of Aftercare Appointment: [phone] Date of Aftercare Appointment: 08/20/24 Time of Aftercare Appointment: 2:30PM Aftercare Appointment Comment: Post hospitalization meeting will be held via zoom (1) Psychosis Psychosis type: unspecified psychosis type Qualified Code(s): F29 - Unspecified psychosis not due to a substance or known physiological condition
[2024-08-15] MEDS: LORazepam 1 MG TAB PO STA (00:22)
--- NOTE | 2024-08-15 12:12 | Discharge Summary ---
Date of Service August 15, 2024 History of Present Illness She presents for psychiatric admission for worsening psychosis interfering with her ability to function as she has been hearing negative voices which are impacting her sleep and ability to function in her classes. She describes a 4 year history of disturbing symptoms that worsen around her menses. She reports a strong correlation between her symptoms and technology, with the onset of her symptoms beginning with a perceived connection to a male individual on campus. She describes feeling paranoid due to the individual's avoidance of direct communication and subsequent interactions on a [employer] website. She has been experiencing auditory hallucinations, hearing the individual's voice in her head, which has led to sleep disturbances and obsessive behavior with chess as a coping mechanism. She has experienced physical sensations throughout her body and has a history of belching related to this sense of "wisps and pressure" but also reports this is associated with seizures. She reports sensations throughout her body, including what she calls "wisps" on her body, face, inside her nose, and behind her ears. She also describes feeling pressures on her heart and in her pelvic area. She reports stable sleep in recent weeks of at least 8 hours pe r night. Expanding on her symptoms she describes a variety of experiencing including: "Essentially it's evolved to a connection with technology". She has the sense of "wisps" on her body, behind my ears, my neck, my nose. She notes she also feels "pressures that are not my own, my heart would act because of some pressure". She describes "ictal belching" related to this pressure and "I think connected to my yazidi". She describes increasing paranoia especially toward an individual who she's never spoken to but whom she senses he has wanted to establish some type of connection. She notes that whenever she tried to approach him "he had a bizarre aura". She notes that "he knew I liked him" but "he would never talk, he just wanted to be in my presence". She tried to come to the conclusion that he didn't like her but "he was always staring at me and I'd always see him around campus". She feels this started her paranoia and that it's persisted since then. She enjoys playing [employer] but after an experience on [employer] where she played against someone with a username that matched the man who she sees around campus. She messaged him through the [employer] site to confirm it was him and asked this person to confirm the name of her best friend but this individual then said they didn't understand Baham[place] and so she blocked this person online. She notes that a lot of her paranoia correlates to her dreams. One morning she saw "a telegram in the jerzy" of this man talking to her in the dream. She then realized that he could see her through her computer screen. She noticed her [employer] website would "glitch or shut down" and she suspects this may have been him hacking her computer. She then began hearing his voice in her head and "my computer slowed down like it was correlated" or the chess pieces would slow down. Her sleep has been difficult "because he tells me why he acts the way he does and it's very negative including all the reasons he can't talk to me like you're poor and the n-word" she notes it would also tell her to stop playing chess. The voice has been very negative and "they aren't my thoughts". She ended up playing a lot of chess to relax but then "I would feel like he was stalking me because he would try to stop me from playing because the game would freeze". The voice would say "I can see you" and "I can hear you" so she felt she needed to cover her camera. She now has the sense he knew about her before college and "knew me despite us not having met" and thinks this is why she was dreaming about him before they even met. She's never pointed him out when she's with other individuals. She has the sense "he knows what I'm thinking and feeling and can hear through the regalado". The voice "threatens me" will say negative things to her swear at her. "Part of it is the telepathy". She notes the voice is often "crying". She thinks he is upset today that she is away from her electronics in the inpatient setting so he can't monitor her. She feels like last week she saw him on campus driving around in his black Honda. She also reports a history of epilepsy, with her last seizure occurring during college. She experiences headaches, belching, and occasional trembling fits. She has previously been on Trileptal and Lamictal for seizure management but weaned herself off the medications in 10th grade due to their impact on her school performance. She denies any thoughts of suicide or wanting to hurt others but acknowledges that the auditory hallucinations sometimes instruct her to do things but she never does this. She describes periods of "zeeshan" during which the hallucinations become more negative and persistent, affecting her sleep but denies any other symptoms of zeeshan during this time. She is currently studying Mauritian and is on track to graduate in the spring. She is not currently prescribed any psychiatric medications. Physical Exam Psychiatric Orientation: alert and oriented x 3 Apperance: appropriately dressed and appropriately groomed Eye Contact: good eye contact Motor Behavior: no abnormal motor movements Speech: normal rate/rhythm/volume of speech Affect: euthymic affect, + anxious affect and + constricted affect Mood: no depressed mood and no anxious mood Thought Process: goal directed thought process, + circumstantial thought process (minimally), + tangential thought process and + looseness of associations Thought Content: + preoccupation, + obsessions, + paranoid, + delusions (persist to some degree but is able to reality test), + ideas of reference, + thought insertion and + persecution Suicidal Thoughts: denies suicidal thoughts, denies suicidal plan and denies suicidal intent Homicidal Thoughts: denies homicidal thoughts Hallucinations: + auditory hallucinations and + visual hallucinations Cognition: recent memory grossly intact, remote memory grossly intact, attention grossly intact and language grossly intact Estimated Intelligence: consistent with education level Insight: + limited insight and + fair insight Judgment: + fair judgement Vital Signs (Past 24 Hours) Last Vital Signs Temp 37 C 08/15/24 06:36 Pulse 98 H 08/15/24 06:37 Resp 16 08/15/24 06:36 BP 126/91 08/15/24 06:37 Pulse Ox 99 08/10/24 06:00 O2 Del Method Room Air 08/10/24 06:00 Psychiatric Data See daily stay summary. In short, safety was maintained and the patient was cooperative with care. Medication changes included [] and they tolerated this well. A family session was [held] and safety plan was completed prior to discharge. Day of Discharge Assessment Today the patient voices readiness for discharge. They note improvement in mood and deny thoughts to harm self or others. Thoughts remain organized and they are improved from admission. There is no evidence of psychosis. They agree to take mediations as prescribed and keep follow-up appointments. They are stable for discharge to outpatient level of care. Advance Directives Advance Directives Information Provided: Yes Advance Directives: No Mental Health Advance Directive: No Advance Directives on File: No Living Will: No Power of Psychotherapist Counselor: No Advance Directives Reason:: Declines as Mental Health Visit. Risk Factors Assessment Male: No : No Do You Have Access To A Gun?: No Mental Health Diagnoses: Yes Substance Use Disorders: No Previous Attempt: No Family History of Suicide: No Previous Psychiatric Hospitalization: No Hopelessness: No Protective Factors Assessment Confucianism Beliefs: Yes : No Responsible for Young Children: No Employed: No Stable Relationships: Yes Supportive Family: Yes Good Rapport with Provider: Yes Absence of Any Risk Factors Above: No Tobacco Cessation at Discharge Tobacco Cessation Medication Prescribed at Discharge: Not Applicable/Non-Smoker Discharge Data Lab Results 08/09/24 08/09/24 08/11/24 14:25 14:48 08:04 WBC 6.88 RBC 4.54 Hgb 12.2 Hct 37.9 MCV 83.5 MCH 26.9 MCHC 32.2 RDW Std Deviation 38.9 RDW Coeff of Tara 12.8 Plt Count 301 MPV 9.8 Immature Gran % (Auto) 0.1 Neut % (Auto) 65.0 Lymph % (Auto) 24.6 [place] % (Auto) 8.6 Eos % (Auto) 1.3 Baso % (Auto) 0.4 Neut # (Auto) 4.47 Lymph # (Auto) 1.69 [place] # (Auto) 0.59 Eos # (Auto) 0.09 Baso # (Auto) 0.03 Immature Gran # (Auto) 0.01 Sodium 141 Potassium 3.8 Chloride 108 H Carbon Dioxide 28 Anion Gap 5 BUN 7 Creatinine 0.61 Est Cr Clr Drug Dosing 141.9 eGFR 130.36 BUN/Creatinine Ratio 11.5 Glucose 95 Estimat Average Glucose 111 Hemoglobin A1c 5.5 Calcium 9.3 Total Bilirubin 0.2 AST 12 L ALT 9 Alkaline Phosphatase 48 Total Protein 7.3 Albumin 4.4 Globulin 2.9 Albumin/Globulin Ratio 1.5 Triglycerides 85 Cholesterol 167 LDL Cholesterol, Calc 107 VLDL Cholesterol, Calc 17 HDL Cholesterol 43 Cholesterol/HDL Ratio 3.9 TSH 1.882 HCG, Qual Negative Urine Color Yellow Urine Appearance Cloudy A Urine pH 5.5 Ur Specific [place] 1.028 Urine Protein Trace H Urine Glucose (UA) Negative Urine Ketones Trace H Urine Blood 3+ H Urine Nitrite Negative Urine Bilirubin Negative Urine Urobilinogen Negative Ur Leukocyte Esterase Negative Urine WBC (Auto) 0-5 Urine RBC (Auto) >20 H U Hyaline Cast (Auto) 0-2 U Epithel Cells (Auto) 0-2 Urine Bacteria (Auto) None Seen Salicylates < 3.0 L Urine Opiates Screen Neg Ur Methadone, Qual Neg Urine Fentanyl Screen Neg Acetaminophen < 3 L Urine Barbiturates Neg Ur Phencyclidine (PCP) Neg U Amphetamin/Meth Scrn Neg MDMA (Ecstasy) Screen Neg U Benzodiazepines Scrn Neg Ur Cocaine Metabolite Neg U Marijuana (THC) Screen Neg Ethyl Alcohol mg/dL 10.7 H SARS-CoV-2, RNA, NAAT NEGATIVE Hospital Course (1) Psychosis: (2) Hallucinations: Plan 08/14/24: No changes to plan - if family meeting goes well tomorrow can likely discharge. 08/13/24: No changes to plan. 08/12/24: Increase Abilify to 7mg - although only taking a few days, symptoms are significant. 08/11/24: No changes to plan. 08/10/2024: [facility] on q15 min checks (behavioral with suicide precautions) for safety. The patient will participate in group, recreational, and milieu therapies and will be offered additional individual and family sessions as clinically appropriate. -Start abilify 5mg qd with additional 2.5mg po BID prn for psychosis -HbA1c and fasting lipid panel tomorrow AM -Seizure precautions Mental Health & Subst Abuse Tx Psychiatrist Name of Psychiatrist: Dav Mohamud) [address] [place] [address] Psychiatrist's Date Of Appointment With Psychiatric Provider: 08/27/24 Time of Appointment with Psychiatrist: 8:00AM Psychiatrist Release of Information: Obtained, Reviewed and Signed Therapist Name of Therapist: Jaun Fontaine[address] [place] [address]) Therapist's Date of Therapist Appointment: 08/30/24 - Time of Therapist Appointment: 2PM Therapy Appointment Comment: In person Therapist Release of Information: Obtained, Reviewed and Signed Post Discharge Appointments Primary Care Physician Name Of Family Doctor/PCP: Marla Specialist Name of Specialist: [employer] [facility] Smoking Cessation Counseling Tobacco Cessation Medication Prescribed at Discharge: Not Applicable/Non-Smoker Discharge Plan Discharge Items Patient Disposition: Home - Self-Care Reason For Visit: UNSPECIFIED PSYCHOSIS Discharge Diagnosis: Unspecified Psychosis Condition on Discharge: Good Health Concerns: History of seizure disorder - in process of establishing care with outpatient neurologist. Activity: Resume your previous activity Non-emergency contact: Primary Care Provider and Psychiatrist Call non-emergency contact if: you have any medication questions and your symptoms worsen Follow-up/Referrals: Sarahi Casas MD [Primary Care Provider] - Diet: Regular Addtl Attending Provider Instructions: SPECIAL CARE INSTRUCTIONS: 1. Follow through with your scheduled aftercare appointments. If unable to keep an appointment, please call to reschedule. 2. Take your medication only as prescribed. Medication should not be changed or stopped without the approval of your doctor. In the event of worsening symptoms or concerns about side effects, contact your doctor immediately. 3. Utilize new healthy coping skills, anger management skills, and stress management skills learned during your hospitalization. Journal feelings and process them with a support person. Identify stressors or situations that may result in relapse, deterioration or inappropriate behaviors and develop a plan to deal with those issues. 4. If your coping skills are ineffective and you are in crisis, contact your outpatient providers for direction. If unable to reach your providers, please call the [facility] CRISIS LINE AT , go to the [facility] walk-in center at [address], [address], [place], or go to the closest Emergency Room. 5. Avoid alcohol and un-prescribed drugs. 6. You have been provided with the Mental Health Advance Directives Pamphlet for your review. 7. Your condition is stable for discharge to outpatient level of care, but recovery is an ongoing process. Ifthoughts to harm yourself or others return, follow the safety plan developed during your stay. Planning for a safe return home includes securing weapons. Our treatment team recommends weaponsbe removed from the home until your outpatient provider reassesses your progress. In rare cases where the items themselvescannot be removed, guns and ammunitionshould be secured separatelyand keys stored by a reliable personoutside of the home. If you were admitted on an involuntary commitment, the police or other legal authorities may be involved in this process. AFTERCARE APPOINTMENTS: * Please call your insurance company prior to your scheduled appointment to confirm your aftercare providers are covered. Take your insurance information to your appointments. WHO TO CALL AND WHEN: Medical Emergencies: For questions or emergencies related to your hospital stay, please contact the Inpatient Behavioral Health Unit at [phone]. A senior teradata developer is on-call 30/05 for the Behavioral Health Unit for emergencies At any time you feel your situation is an emergency, you may also call 911 immediately. Pending Studies at Discharge: No Stand-Alone Forms: [facility], Smoking Cessation Medications and DC Order Prescriptions: New aripiprazole 2 mg tablet 4 mg PO QAM Qty: 60 0RF Rx Instructions: take 2 tabs at bedtime hydroxyzine HCl 25 mg Tablet 25 mg PO BID PRN (Reason: anxiety/insomnia) Qty: 60 0RF Rx Instructions: take 1 to 2 tabs a day as needed for anxiety and/or insomnia Discharge Orders: Discharge Order (Routine); Ordered 08/15/24 Ordered By: Susan Yin/Other Patient Handouts: Antipsychotic Meds Caregiver Admission Data Admit Date/Time: 08/09/24 19:33 Attending Provider: Susan Sevilla Admit Provider: Ying Nur Primary Care Provider: Sarahi Casas Coding Diagnoses Psychosis F29 Psychosis type: unspecified psychosis type Hallucinations R44.3
== END 2024-08-15 12:40 | disposition home or self-care (01) | DRG 885 ==
LOC: ED 14:09 → 3S 19:08 → SUATTDRO 19:33 → 3S 19:33